=== PATIENT | male | born 1950 | race Caucasian/White ===

== ENCOUNTER 2020-09-25 07:26 | Inpatient (IN) | payer MEDICARE, SELFPAY ==
[2020-09-25] VITALS (67 sets, daily range): BP systolic 70–143; BP diastolic 33–100; PULSE 45–68; RESP 13–42; TEMP 35.8–36.5; O2SAT 88–100; BMI 44.5
--- NOTE | ~2020-09-25 | XR_ITS ---
EXAMINATION: XR chest 1V portable DATE: 09/25/2020 08:45 INDICATION: Dizziness and weakness TECHNIQUE: frontal view of the chest was obtained. COMPARISON: None FINDINGS: Opacities at the medial aspect of the left lower lung zone which could represent atelectasis or pneum onia. No pulmonary edema, pleural effusion or pneumothorax. Borderline heart size accounting for AP t echnique. There are bridging osteophytes at multiple levels in the spine, consistent with diffuse idi opathic skeletal hyperostosis (DISH). IMPRESSION: 1. Opacities at the medial left lower lung zone which could represent atelectasis and/or pneumonia. 2. Borderline heart size. Reviewed, dictated and finalized at location A. HANDLER IMPRESSION: 1. Opacities at the medial left lower lung zone which could represent atelectas is and/or pneumonia. 2. Borderline heart size.
--- NOTE | ~2020-09-25 | XR_ITS ---
XR chest 1V portable DATE: 09/27/2020 05:43 INDICATION: Shock TECHNIQUE: Portable AP chest on September 27, 2020 at 0518 hours COMPARISON: 09/25/2020 portable AP chest at 1254 hours FINDINGS: Right internal jugular central venous catheter tip is situated near the superior cavoatrial junction. There is no pneumothorax. Mild infiltrate or atelectasis in the mid and particularly lower lung zones, increased since . Heart size appears borderline, not optimally evaluated on AP projection because of magnification. Pul monary vascular redistribution may indicate mild pulmonary venous hypertension. There is aortic arch calcification. IMPRESSION: Interval mild infiltrate or atelectasis in the mid and to a greater extent lower lung zon es since 09/25/2020 Reviewed, dictated and finalized at location A. SCIENTIFIC AFFAIRS IMPRESSION: Interval mild infiltrate or atelectasis in the mid and to a greater extent lower lung zones since 09/25/2020
--- NOTE | ~2020-09-25 | US_ITS ---
EXAMINATION: US renal BI DATE: 09/26/2020 09:30 INDICATION: Acute kidney injury. Hydronephrosis. TECHNIQUE: Multiple ultrasound grayscale images of the kidneys were obtained. COMPARISON: None. FINDINGS: Sensitivity is decreased by obesity. The right kidney measures 11.3 x 6.9 x 6.5 cm. The left kidney m easures 12.1 x 7.5 x 8.5 cm. There is no hydronephrosis. The bladder is normal. IMPRESSION: 1. Normal kidneys. No hydronephrosis. Reviewed, dictated and finalized at location A. URETOR SPECIALIST
--- NOTE | ~2020-09-25 | XR_ITS ---
EXAMINATION: XR chest port-a-cath/central DATE: 09/25/2020 12:51 INDICATION: Central venous catheter placement TECHNIQUE: frontal view of the chest was obtained. COMPARISON: Chest radiograph dated 09/25/2020 at 8:43 AM FINDINGS: Right internal jugular central venous catheter with distal tip at the caudal superior vena cava. Agai n seen are mild opacities in the left lower lung zone. Right lung remains clear. No pneumothorax or d efinitive pleural effusion. Borderline heart size. IMPRESSION: 1. Right internal jugular central venous catheter tip in the caudal superior vena cava. 2. Persistent opacities in the left lower lung zone which could represent atelectasis and/or pneumoni a. 3. Borderline heart size. Reviewed, dictated and finalized at location A. DULE CLERK IMPRESSION: 1. Right internal jugular central venous catheter tip in the caudal superior ve na cava. 2. Persistent opacities in the left lower lung zone which could represent atele ctasis and/or pneumonia. 3. Borderline heart size.
--- NOTE | 2020-09-25 07:53 | ECG_ITS ---
Measurements Intervals Waterfall Rate: 57 P: ID: 0 QRS: 12 QRSD: 93 T: 35 QT: 497 QTc: 487 Interpretive Statements ATRIAL FIBRILLATION WITH SLOW VENTRICULAR RESPONSE INCOMPLETE RIGHT BUNDLE BRANCH BLOCK PROLONGED QT INTERVAL BASELINE ARTIFACT- III, AVR, AVL, AVF, V1-V3, V5-V6 ABNORMAL ECG Electronically Signed On 09-25-2020 14:53:26 TEACHER OF FAMILY AND CONSUMER SCIENCE by Stefan Montoya D.O.
[2020-09-25 08:18] LABS: Alveolar/Arterial O2 Gradient 26.2 mmHg; Base Excess ABG -3.2 mEq/l (+/-2.0); Carboxyhemoglobin 0.4 % THb (0-2.0); Fractional Inspired Oxygen 21 %; HCO3 ABG 20.8 mEq/l (22.0-26.0); Methemoglobin ABG 0.2 %THb (0-1.5); Oxygen Content ABG 16.5 %vol (16.0-22.0); Oxygen Saturation ABG 96.3 % (95.0-100.0); Oxyhemoglobin 94.7 % THb (90.0-100.0); PCO2 ABG 34.1 mmHg (35.0-45.0); PO2 ABG 82.7 mmHg (80.0-100.0); PO2 FiO2 Ratio Arterial Blood 3.94 %; Reduced Hemoglobin 4.7 %THb (0-5.0); Total Hemoglobin 12.3 g/dL (12.0-18.0); pH ABG 7.404 (7.350-7.450)
[2020-09-25 08:19] LABS: Device ROOM AIR; Modified Allen's Test Pass; Site Drawn RIGHT RADIAL
[2020-09-25] MEDS: SODIUM CHLORIDE 0.9% IV 1,000 ML 999 ML IV CONT ×2 (08:25→09:03)
[2020-09-25] MEDS: ATROPINE SULFATE 1 MG/10 ML SYRINGE 0.5 MG IV PUSH (08:25)
[2020-09-25] MEDS: GLUCAGON FOR INJ 1 MG VIAL 5 MG IV PUSH (08:42)
[2020-09-25 09:10] LABS: Basophils Percent Auto 0.3 % (0.2-1.2); Eosinophils Absolute Auto 0.2 K/mm3 (0-0.3); Eosinophils Percent Auto 1.5 % (0-4.4); Hematocrit 33.8 % (42.0-52.0); Hemoglobin 10.7 g/dL (14.0-18.0); Immature Granulocyte Absolute 0.06 K/mm3 (0.00-0.031); Immature Granulocyte Percent A 0.6 % (0-0.5); Mean Corpuscular HGB Conc 31.7 g/dl (32-36); Mean Corpuscular Hemoglobin 30.4 pg (26-34); Mean Platelet Volume 10.5 fl (7.4-10.4); Monocytes Absolute Auto 0.5 K/mm3 (0.1-0.6); Monocytes Percent Auto 5.3 % (2.6-8.5); Neutrophils Absolute Auto 7.9 K/mm3 (1.3-6.7); Neutrophils Percent Auto 79.3 % (45.5-73.1); Platelet Count Result 237 k/mm3 (150-375); Red Blood Count 3.52 M/mm3 (4.6-6.20); Red Cell Distribution Width 15.5 % (11.5-14.5)
[2020-09-25 09:21] LABS: Alanine Aminotransferase 32 U/L (4-50); Albumin Level 3.1 g/dL (3.5-5.1); Alkaline Phosphatase 179 U/L (38-126); Anion Gap 6 mmol/L (8-16); Aspartate Amino Transferase 38 U/L (17-59); Bilirubin,Total 0.5 mg/dL (0.2-1.3); Blood Urea Nitrogen 100 mg/dL (9-20); Calcium 7.7 mg/dL (8.4-10.2); Carbon Dioxide 24 mmol/L (22-30); Chloride 105 mmol/L (98-107); Estimated CRCL calculation 25 ml/min; Estimated Glomerular Filt Rate 16; Glucose 222 mg/dL (75-110); INR 4.7; Lactic Acid Reflex 1.4 mmol/L (0.7-2.1); Magnesium 1.9 mg/dL (1.6-2.3); Potassium 4.8 mmol/L (3.4-5.0); Prothrombin Time 44.7 Seconds (11.1-14.7); Sodium 135 mmol/L (137-145)
[2020-09-25 09:22] LABS: Partial Thromboplastin Time 45.6 SECONDS (22.3-36.8)
[2020-09-25 09:32] LABS: Troponin I < 0.012 ng/mL (0.000-0.034)
[2020-09-25 10:04] LABS: Add Urine Microscopic? NO; Appearance Urine Clear (Clear); Bilirubin Urine Negative (Negative); Blood Urine Negative (Negative); Color Urine Yellow (Yellow); Glucose Urine UA Negative (Negative); Ketones Urine Negative (Negative); Leukocyte Esterase Ur Negative LEU/UL (Negative); Nitrate Urine Negative (Negative); Protein Urine Negative (Negative); Specific Grav Ur 1.013 (1.001-1.035); Urobilinogen Urine Negative mg/dL (<2.0)
--- NOTE | 2020-09-25 10:25 | ED.DIZZY ---
HPI - Dizziness General Chief Complaint: Dizziness Stated Complaint: dizziness Time Seen by Provider: 09/25/20 07:51 Source: patient Mode of arrival: EMS Limitations: no limitations History of Present Illness HPI Narrative: Patient is a 70 year old male with multiple medical problems which includes afib, HTN, chronic left foot wound , chronic kidney disease who presents for evaluation of dizziness. He states he took lisinopril 10 mg 2 am this morning for the first time. An hour after taking the medication, he started feeling dizzy. He reports his vision became blurry , and he had pain to the back of his neck and shoulders. He thought it was his blood sugar so he drank some juice and he checked his BS. It was 200 so he realized that was not the cause. He continued to feel lighthead and could walk so he called EMS. EMS found patient to have SBP 60s with bradycardia. He was started on fluids so his blood pressure is higher. He states he feels better. His blurred vision has resolved. He denies chest pain, shortness of breath, abdominal pain, or headache. He reports his neck pain has improved. He denies focal deficits. He took his morning medications this morning which include his metoprolol. He normally gets care at [facility] but his bookmobile clerk is Dr. Bill. Related Data Home Medications Medication Instructions Recorded Confirmed aspirin 81 mg PO DAILY 09/25/20 09/25/20 atorvastatin [Lipitor] 80 mg PO DAILY 09/25/20 09/25/20 bupropion HCl [Wellbutrin XL] 150 mg PO DAILY 09/25/20 09/25/20 cholestyramine (with sugar) 1 ea PO DAILY 09/25/20 09/25/20 [Questran] insulin glargine [Lantus Solostar See Protocol SUBCUT 09/25/20 09/25/20 U-100 Insulin] insulin glargine [Lantus U-100 25 unit SUBCUT 09/25/20 09/25/20 Insulin] insulin lispro [Humalog KwikPen See Protocol SUBCUT 09/25/20 09/25/20 Insulin] lisinopril [Zestril] 10 mg PO HS 09/25/20 09/25/20 metolazone 5 mg PO 3XW 09/25/20 09/25/20 metoprolol tartrate [Lopressor] 50 mg PO Q12H 09/25/20 09/25/20 tamsulosin [Flomax] 0.4 mg PO HS 09/25/20 09/25/20 torsemide 60 mg PO DAILY 09/25/20 09/25/20 tramadol 50 mg PO Q6H PRN 09/25/20 09/25/20 warfarin 10 mg PO QPM 09/25/20 09/25/20 Allergies Allergy/AdvReac Type Severity Reaction Status Date / Time erythromycin base Allergy Hives Verified 09/25/20 07:53 Review of Systems Review of Systems: All systems reviewed & are unremarkable except as noted in HPI and below Constitutional: Constitutional: Denies chills and Denies fever(s) Eyes: Eyes: Reports change in vision ENT: Denies nasal congestion Cardiovascular: Cardiovascular: Denies chest pain Respiratory: Respiratory: Denies cough and Denies dyspnea Gastrointestinal: Gastrointestinal: Denies abdominal pain, Denies nausea and Denies vomiting Neurologic: Reports dizziness, Denies syncope, Denies headache(s) and Reports weakness PMFSH Past Medical History Medical History (Updated 09/25/20 @ 18:22 by Cindy Ledezma NP) BPH (benign prostatic hyperplasia) CHF (congestive heart failure), NYHA class I Chronic a-fib CKD (chronic kidney disease) Depression with anxiety Diabetes History of amputation of left great toe History of cardioversion which she eventually failed. HTN (hypertension) with goal to be determined Hyperlipidemia Surgical History Surgical History (Updated 09/25/20 @ 18:22 by Cindy Ledezma NP) H/O cardiac catheterization H/O heart artery stent LAD Family History Family History (Updated 09/25/20 @ 18:25 by Cindy Ledezma NP) Son Non Hodgkin's lymphoma Acute myocardial infarction Other No known health problems Social History Social History (Updated 09/25/20 @ 18:28 by Cindy Ledezma NP) Social History: the patient is and has a significant other. He has 3 sons. 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 The patient wishes to be a DNR. Patient is a lifelong nonsmoker. He rarely
[2020-09-25] MEDS: SODIUM CHLORIDE 0.9% IV 500 ML 999 ML (11:41)
[2020-09-25] MEDS: DOPamine 400 MG/D5W 250 ML 400 MG/250 ML BAG 14.47 MG IV CONT (11:54)
[2020-09-25 12:32] LABS: Troponin I < 0.012 ng/mL (0.000-0.034)
--- NOTE | 2020-09-25 13:03 | PC.NURSE ---
wound vac removed from lt posterior foot per protocol. saline soaked gauze packed into wound and covered with 4 x 4 gauze and kerlix wrap.
--- NOTE | 2020-09-25 13:58 | ADMGEN ---
This patient, Ruddy Joyner, was admitted to Intensive Care Unit-6. Patient/family oriented to hospital policies and general routines including ID bracelet, bed and alarms, visiting hours, pain management, procedures, bathroom and other care routines, personal items, smoking policy, room service/diet, and visiting hours. Information on how to activate the Rapid Response Team has been discussed. Patient/Family are encouraged to report perceived risks to care and to ask questions if they do not understand what they are told or what they should do.
[2020-09-25] MEDS: DOPamine 400 MG/D5W 250 ML 400 MG/250 ML BAG 17.36 MG IV CONT (14:15)
--- NOTE | 2020-09-25 14:56 | WPDCNINT ---
Assessment and Plan Assessment and plan (1) Shock: Code(s): R57.9 - Shock, unspecified Status: Acute Assessment and Plan: His shock may be due to dehydration in combination with antihypertensives in the setting of acute kidney injury but sepsis should be ruled out especially with the left foot wound he is at risk for spontaneous bacteremia. We need to get his antibiotic allergy list he says he is allergic to vancomycin. In the meantime I will start him on doxycycline 100 mg IV q.12 hours and would like to start clindamycin if he is not allergic to it. If blood cultures are negative for 24-48 hours the clindamycin can be discontinued and he can carry on with his normal doxycycline does that he takes at home. Will give him more IV fluids gently and that with his history of congestive heart failure. And maintain his mean arterial pressure greater than 65. (2) EVON (acute kidney injury): Code(s): N17.9 - Acute kidney failure, unspecified Status: Acute Assessment and Plan: Likely due to shock, hypovolemia, LUCAS/diuretic use, combination of factors. Sepsis also possible. - Keep MAP > 65 - monitor acccurate I/O - avoid nephrotoxic meds and renal dose medications when appropriate. (3) Diabetes: Code(s): E11.9 - Type 2 diabetes mellitus without complications Status: Acute (4) CAD (coronary artery disease): Code(s): I25.10 - Atherosclerotic heart disease of [place] coronary artery without angina pectoris Status: Acute (5) H/O CHF: Code(s): Z86.79 - Personal history of other diseases of the circulatory system Status: Acute Additional Plan Code Status is Full Total Critical Care Time - 34 minutes Due to a high probability of clinically significant, life threatening deterioration, the patient required my highest level of preparedness to intervene emergently and I personally spent this critical care time directly and personally managing the patient. This critical care time included obtaining a history; examining the patient; pulse oximetry; ordering and review of studies; arranging urgent treatment with development of a management plan; evaluation of patient's response to treatment; frequent reassessment; and discussions with other providers. It was exclusive of separately billable procedures and treating other patients and teaching time. Please see Assessment and Plan section and the rest of the note for further information on patient assessment and treatment Poultry Helper Consult Note Consult date: 09/25/20 Time Seen: 14:30 HPI: Ruddy Joyner is a 70 year old male obese male who presents with dizziness and was found to be hypotensive down in the emergency department. He was given a fluid bolus which improved his blood pressure temporarily but later decreased. His heart rate was also in the 50s. He was started on vasopressor support with Levophed. And admitted to the intensive care unit. The patient has a history of diabetes, congestive heart failure, coronary artery disease status post PCI many years ago, obesity, peripheral vascular disease with left foot osteomyelitis currently being treated by Infectious Disease at [facility] with doxycycline. He is allergic to multiple medications he says including vancomycin. I reviewed his laboratory data and imaging and there are significant for no leukocytosis, renal failure with a creatinine of 3.8, normal ABG. We do not have prior labs to compare to we are in the process of trying to obtain his records. I do not have a list of his medications currently but he says he was just started on lisinopril yesterday and he takes a diuretic. And he is also on doxycycline 100 mg b.i.d. for the left foot MRSA infection. He denies any purulent drainage from the wound and denies any foul-smelling odor. The wound is currently bandaged. And he gets wound care with wound VAC at home. Review of Systems Review of Systems: All systems rev
[2020-09-25] MEDS: CENTRAL LINE FLUSH 10 ML IV PUSH ×3 (15:18→21:00)
[2020-09-25] MEDS: LACTATED RINGERS 1,000 ML 500 ML IV CONT (15:18)
[2020-09-25 15:50] LABS: Troponin I 0.017 ng/mL (0.000-0.034)
[2020-09-25] MEDS: LACTATED RINGERS 1,000 ML 75 ML IV CONT (17:29)
--- NOTE | 2020-09-25 18:06 | PM.IMHP ---
H&P: HPI History of Present Illness Date/Time: 09/25/20 18:06 Chief Complaint: Septic shock Narrative: Ruddy Joyner is a 70 year old male who typically receives his care at [facility]. He sees the cardiology group there. He has seen Dr. Butler the past. Patient tells me that he recently had his medications changed he had his lisinopril increased. He is on metoprolol for atrial fibrillation. The patient stated that he was feeling dizzy and weak. He does have home health that comes to his house and they noticed that his blood pressure was low and his heart rate was low. The patient stated he felt like he was having a low sugar reactions so then he drink some orange juice and ate some food. He said his blood sugar was in the 200s after he ate that and he stated he should of checked his sugar before he drink the orange juice. However he did not. The patient felt like he was going to pass out and the home health nurse stated that she wanted him to come to the emergency room. The patient was given IV fluids and initially his blood pressure did increase to 140s. the blood pressure then dropped down to the 80s again. A central line was placed in the emergency room and the patient was started on dopamine. The patient does have chronic renal failure and sees Dr. el . the patient was admitted to ICU and was seen by the proj engineer. It was felt that the patient was hypotensive either due to his blood pressure medicine or sepsis. The patient stated that he has been dealing with a wound on the left foot on and off for 8-9 years. He has had the left toe amputation in the past and has been going to wound care for an ulcerated area on the left foot. The patient stated that he has been on doxycycline for the the left foot wound Due to MRSA. the patient did have a wound VAC on that left foot at 1 time. His multiple allergies but was not able to recall all of them. Therefore the patient was continued on doxycycline. His H&H is 10.7 and 33.8. His BUN is 100 creatinine is 3.8. The patient was not sure where his levels were in the past. Sodium 135. Glucose 222. The patient was given IV fluid an atropine he is also given glucagon to hopefully reverse the beta-emi. patient felt like his vision was fogging any felt dizzy he had pain to his right arm and elbow. He had had a headache Patient was admitted to inpatient services on the date of service of 09/25/2020. Review of Systems Review of Systems: All systems reviewed & are unremarkable except as noted in HPI and below Constitutional: Constitutional: Reports as per HPI and Reports no additional constitutional complaints Eyes: Eyes: Reports as per HPI and Reports no additional eye complaints ENT: Reports system reviewed and no additional complaints, except as documented and Reports Normal hearing present Cardiovascular: Cardiovascular: Reports no additional cardiovascular complaints Respiratory: Respiratory: Reports no additional respiratory complaints and Reports no additional respiratory complaints Gastrointestinal: Gastrointestinal: Reports as per HPI and Reports no additional gastrointestinal complaints Musculoskeletal: Musculoskeletal: Reports no additional musculoskeletal complaints Integumentary/Breasts: Skin/Breast: Reports system reviewed and no additional complaints, except as docu and Reports as per HPI Neurologic: Reports system reviewed and no additional complaints, except as documented, Reports as per HPI and Reports Normal hearing present Psychiatric: Psychiatric: Reports no additional psychiatric complaints and Reports as per HPI Endocrine: Endocrine: Reports no additional endocrine complaints Hematologic/Lymphatic: Hematologic/Lymphatic: Reports no additional hematologic/lymphatic complaints Allergic/Immunologic: Allergic/Immunologic: Reports no additional allergic/immunologic complaints [facility] Past Medical History Medical History (Updated 09/25/20
[2020-09-25] MEDS: INSULIN GLARGINE (*BKC) 100 UNITS/ML 25 UNITS SUB-Q (20:55)
[2020-09-25 21:03] LABS: Glucose Point of Care 234 (65-105)
[2020-09-25] MEDS: DOPamine 400 MG/D5W 250 ML 400 MG/250 ML BAG 28.93 MG IV CONT (21:45)
[2020-09-25] MEDS: ACETAMINOPHEN 325 MG TABLET 650 MG PO (23:51)
[2020-09-26] VITALS (18 sets, daily range): BP systolic 77–126; BP diastolic 43–79; PULSE 62–86; RESP 14–22; TEMP 36.6; O2SAT 89–98
[2020-09-26 04:45] LABS: Basophils Percent Auto 0.2 % (0.2-1.2); Eosinophils Absolute Auto 0.3 K/mm3 (0-0.3); Hematocrit 32.9 % (42.0-52.0); Hemoglobin 10.7 g/dL (14.0-18.0); Immature Granulocyte Absolute 0.06 K/mm3 (0.00-0.031); Immature Granulocyte Percent A 0.6 % (0-0.5); Lymphocytes Absolute Auto 0.94 K/mm3 (0.9-3.2); Mean Corpuscular HGB Conc 32.5 g/dl (32-36); Mean Corpuscular Hemoglobin 30.6 pg (26-34); Mean Platelet Volume 10.2 fl (7.4-10.4); Monocytes Absolute Auto 1.1 K/mm3 (0.1-0.6); Neutrophils Absolute Auto 8.1 K/mm3 (1.3-6.7); Neutrophils Percent Auto 77.2 % (45.5-73.1); Platelet Count Result 229 k/mm3 (150-375); Red Cell Distribution Width 14.8 % (11.5-14.5); White Blood Count 10.5 K/mm3 (4.5-10.0)
[2020-09-26] MEDS: CENTRAL LINE FLUSH 10 ML IV PUSH ×4 (05:15→22:56)
[2020-09-26 05:20] LABS: Lactic Acid Reflex 1.1 mmol/L (0.7-2.1)
[2020-09-26 05:25] LABS: Anion Gap 6 mmol/L (8-16); Blood Urea Nitrogen 104 mg/dL (9-20); CRP 0.9 mg/dL (<1.0); Calcium 7.5 mg/dL (8.4-10.2); Carbon Dioxide 28 mmol/L (22-30); Chloride 103 mmol/L (98-107); Estimated CRCL calculation 25 ml/min; Estimated Glomerular Filt Rate 15; Glucose 185 mg/dL (75-110); Magnesium 1.8 mg/dL (1.6-2.3); Potassium 4.8 mmol/L (3.4-5.0); Sodium 137 mmol/L (137-145)
[2020-09-26] MEDS: DOPamine 400 MG/D5W 250 ML 400 MG/250 ML BAG 40.5 MG IV CONT ×2 (05:45→12:29)
[2020-09-26 05:50] LABS: INR 4.8; Prothrombin Time 45.4 Seconds (11.1-14.7)
[2020-09-26 06:27] LABS: Thyroid Stimulating Hormone Reflex 0.238 uIU/mL (0.465-4.68)
[2020-09-26 06:52] LABS: Free T4 Free Thyroxine Reflex 1.13 ng/dL (0.78-2.19)
[2020-09-26] MEDS: LACTATED RINGERS 1,000 ML 75 ML IV CONT ×2 (07:00→19:50)
[2020-09-26] MEDS: ATORVASTATIN 40 MG TABLET 80 MG PO (07:51)
[2020-09-26] MEDS: buPROPion HCL XL (24 HR) 150 MG TABCR PO (07:52)
[2020-09-26] MEDS: TOLNAFTATE 1% POWDER 45 GM BTL 1 APPLIC TOPICAL ×2 (07:52→21:16)
[2020-09-26 08:02] LABS: Glucose Point of Care 193 (65-105)
[2020-09-26 10:58] LABS: Total Triiodothyronine (T3) 0.82 NG/ML (0.97-1.69)
[2020-09-26 12:13] LABS: Creatinine Urine 71.7 mg/dL
[2020-09-26 12:14] LABS: Potassium Urine Random 32.1 meq/L; Sodium Urine Random 30 meq/L
[2020-09-26] MEDS: CHOLESTYRAMINE (W/ SUGAR) 4 GM POWD.PACK 1 GM PO (12:30)
[2020-09-26] MEDS: SILVERGEL (ELTA) 45 ML 1 APPLIC TOPICAL (12:31)
[2020-09-26] MEDS: INSULIN ASPART (*BKC) 100 UNITS/ML SUB-Q ×2 (12:39→18:48)
[2020-09-26 12:43] LABS: Glucose Point of Care 285 (65-105)
--- NOTE | 2020-09-26 14:02 | PM.CNCAR ---
Assessment and Plan Assessment and plan (1) Bradycardia: Code(s): R00.1 - Bradycardia, unspecified Status: Acute Assessment and Plan: While he is showing signs of improvement patient remains critically ill on pressor support in the intensive care unit. Secondary to beta emi toxicity in the setting of acute on chronic renal failure. Continue to hold beta-emi, wean dopamine infusion as heart rate and BP allow. Suspected metoprolol is metabolized heart rate will improve allowing eventual discontinuation. Hold diuretics and antihypertensives. TSH slightly low at 0.238, not likely to be a significant contributor to clinical status. (2) Shock: Code(s): R57.9 - Shock, unspecified Status: Acute Assessment and Plan: As above, wean dopamine infusion as tolerated. Evaluate for underlying infection and/or secondary contribution. (3) EVON (acute kidney injury): Code(s): N17.9 - Acute kidney failure, unspecified Status: Acute Assessment and Plan: Acute on chronic renal failure secondary to addition of lisinopril which in turn resulted in decreased metabolism metoprolol resulting in bradycardia further exacerbating hypotension. His renal failure is severe and progressive with BUN over 100. Nephrology consulted. Appreciate their involvement. Workup pending. Hopefully, he will be able to avoid dialysis. IV fluid support as appropriate. Monitor electrolytes closely. Anemia chronic, follow H&H. No evidence of active bleed at this time. (4) CAD (coronary artery disease): Code(s): I25.10 - Atherosclerotic heart disease of [place] coronary artery without angina pectoris Status: Chronic Assessment and Plan: Asymptomatic, no anginal symptoms. Serial troponins negative. Patient's presentation does not appear to be an ischemic driven process. Continue statin, aspirin. (5) Chronic a-fib: Code(s): I48.20 - Chronic atrial fibrillation, unspecified Status: Chronic Assessment and Plan: persistent atrial fibrillation with slow ventricular response initially supported with dopamine infusion. Hold AV nik blocking agents. Further determination to be made with regards to management depending upon response to therapy. Systemic anticoagulation for stroke risk reduction. (6) Supratherapeutic INR: Code(s): R79.1 - Abnormal coagulation profile Status: Acute Assessment and Plan: Hold warfarin. INR elevated 4.8. Follow H&H and monitor for bleeding. Goal INR 2-3 on anticoagulation for atrial fibrillation. Daily INR. (7) Pulmonary hypertension: Code(s): I27.20 - Pulmonary hypertension, unspecified Status: Acute Assessment and Plan: Chronic, severe on last echocardiogram August [address] [facility]. RVSP 62-67 mm Hg. (8) Diabetes: Code(s): E11.9 - Type 2 diabetes mellitus without complications Status: Chronic Assessment and Plan: Per primary service. (9) OLGA on CPAP: Code(s): G47.33 - Obstructive sleep apnea (adult) (pediatric); Z99.89 - Dependence on other enabling machines and devices Status: Acute Assessment and Plan: Compliance with CPAP. History of Present Illness History of Present Illness Consult date/time: Date of service: 09/26/20 14:02 Cardiology consultation at the request of Cindy Ledezma of the [facility] for my opinion regarding hypotension and bradycardia. Requesting physician: Cindy Ledezma NP Consult reason: hypotension and Other (bradycardia) Reason For Visit: hypotension Narrative: Patient is a pleasant 70-year-old gentleman with past medical history significant for chronic kidney disease stage III, hypertension, heart failure with preserved ejection fraction, chronic atrial fibrillation, hypertension with diabetes mellitus, pulmonary hypertension, obstructive sleep apnea CPAP, coronary artery disease with prior NSTE
--- NOTE | 2020-09-26 14:10 | WPDINTPN ---
Progress Note: A&P Assessment and Plan (1) Shock: Code(s): R57.9 - Shock, unspecified Status: Acute Assessment and Plan: His shock may be due to dehydration in combination with antihypertensives in the setting of acute kidney injury but sepsis should be ruled out especially with the left foot wound he is at risk for spontaneous bacteremia -I called his infectious disease doctor's office and have his allergy list updated. -will start doxycycline 100 mg IV q.12 hours. He also has a wound on his left lower extremity which could be the source of infection and shock. -blood and urine cultures have been obtained -will obtain wound culture -patient received adequate IV fluids, continue maintenance IV fluids. -on dopamine, will maintain mean arterial pressures > 70 mmHg. -encourage p.o. intake and monitor urine output and renal function (2) EVON (acute kidney injury): Code(s): N17.9 - Acute kidney failure, unspecified Status: Acute Assessment and Plan: Likely due to shock, hypovolemia, LUCAS/diuretic use, combination of factors. Sepsis also possible. - Keep MAP >70 -renal ultrasound did not show any hydronephrosis, normal kidneys -appreciate Nephrology evaluation and recommendation - monitor acccurate I/O - avoid nephrotoxic meds and renal dose medications when appropriate. (3) Diabetes: Code(s): E11.9 - Type 2 diabetes mellitus without complications Status: Chronic Assessment and Plan: Accu-Cheks with sliding scale insulin and Lantus (4) CAD (coronary artery disease): Code(s): I25.10 - Atherosclerotic heart disease of [place] coronary artery without angina pectoris Status: Chronic Assessment and Plan: According to cardiology, preserved EF, moderate pulmonary hypertension (5) Bradycardia: Code(s): R00.1 - Bradycardia, unspecified Status: Acute Assessment and Plan: Continue dopamine could be related to metoprolol use, (6) Chronic a-fib: Code(s): I48.20 - Chronic atrial fibrillation, unspecified Status: Chronic Assessment and Plan: Currently rate controlled, will continue to monitor Additional Plan Discussed with patient updated with his condition and plan of care. Code Status is Full Total Critical Care Time - 33 minutes Due to a high probability of clinically significant, life threatening deterioration, the patient required my highest level of preparedness to intervene emergently and I personally spent this critical care time directly and personally managing the patient. This critical care time included obtaining a history; examining the patient; pulse oximetry; ordering and review of studies; arranging urgent treatment with development of a management plan; evaluation of patient's response to treatment; frequent reassessment; and discussions with other providers. It was exclusive of separately billable procedures and treating other patients and teaching time. Please see Assessment and Plan section and the rest of the note for further information on patient assessment and treatment Subjective Date/time seen: 09/26/20 14:10 Interval history: Reason for consult acute kidney injury, bradycardia, shock 09/26/2021: Patient seen and the ICU, his, oriented x3. Patient is on dopamine at 5 mcg/kg/minute. Also IV fluids at 75 mL/hour. States he feels this chest pain shortness of breath abdominal pain nausea, vomiting, dizziness, lightheadedness. Patient states he does not have a good appetite. Early did urinate about 400 mL earlier on in than 300 mL later. Patient was adequately fluid-resuscitated Review of Systems Review of Systems: All systems reviewed & are unremarkable except as noted in HPI and below Exam Const: General: cooperative, healthy appearing, comfortable, no acute distress, well developed, alert and awake Nutritional Appearance: obese Orientation/consciousness: oriented to person, oriented to place, orien
--- NOTE | 2020-09-26 15:16 | PM.CNNEP ---
Assessment and Plan Assessment and plan (1) CKD (chronic kidney disease): Code(s): N18.9 - Chronic kidney disease, unspecified Status: Chronic Assessment and Plan: Ruddy has an elevated creatinine. Etiology is most likely due to diabetes and high blood pressure. Will try to get records from Dr. haynes (2) EVON (acute kidney injury): Code(s): N17.9 - Acute kidney failure, unspecified Status: Acute Assessment and Plan: His creatinine is high. Dr. Haynes has never suggested dialysis or Education so I suspect that he had stage 3 chronic kidney disease before this and this is acute on chronic kidney disease. It is remotely possible that he had progression of his chronic kidney disease but in this setting I would suggest the former. Most likely this acute kidney injury is due to his hypotension. Perhaps this is due to over diuresis and poor appetite or perhaps he has an infection. He also has BPH and so could have obstruction or urinary retention. He refused a Damico catheter. since his refusal he has made urine twice for a total of 900cc since this morning. So sounds like he does not have absolute retention anyway. I asked the nurse to get a bladder scan after the next time he voids. We will in addition get urine electrolytes and eosinophils and a renal ultrasound. he is getting pressors and fluids now to get the blood pressure up. His blood pressure is doing better at the moment. Hopefully his renal function will improve. (3) Shock: Code(s): R57.9 - Shock, unspecified Status: Acute Assessment and Plan: Blood pressure is very low. He is getting pressors and fluids. Diuretics and antihypertensives are on hold. In case of infection he is on antibiotics. (4) BPH (benign prostatic hyperplasia): Code(s): N40.0 - Benign prostatic hyperplasia without lower urinary tract symptoms Status: Chronic Assessment and Plan: Will get a bladder scan postvoid (5) HTN (hypertension) with goal to be determined: Code(s): I10 - Essential (primary) hypertension Status: Chronic Assessment and Plan: antihypertensives are on hold. (6) Chronic a-fib: Code(s): I48.20 - Chronic atrial fibrillation, unspecified Status: Chronic Assessment and Plan: Heart rate is 66 (7) Pulmonary hypertension: Code(s): I27.20 - Pulmonary hypertension, unspecified Status: Acute Assessment and Plan: supportive care (8) Diabetes: Code(s): E11.9 - Type 2 diabetes mellitus without complications Status: Chronic Assessment and Plan: on Accu-Cheks and sliding-scale insulin (9) Hyperlipidemia: Code(s): E78.5 - Hyperlipidemia, unspecified Status: Chronic Additional Plan he is on atorvastatin History of Present Illness Reason for Consult Consult date: 09/26/20 Chief Complaint Chief complaint: hypotension History of Present Illness Narrative: Ruddy is an unfortunate 70-year-old gentleman who has chronic kidney disease, hyperlipidemia, hypertension, congestive heart failure, chronic atrial fibrillation, diabetes, anxiety, BPH. The patient was in his usual state of health until recently when he started on lisinopril. Apparently then he became a bit confused and weak. He felt like his sugar was low so tried some orange juice but still did not wake up so he checked his blood sugar and was 140. He and his discussed what they should do neck is and so they called his primary care physician who told him to go to the emergency room. In the emergency room his found to have very low blood pressure. He was given fluids and pressors. He was admitted to the ICU. He has chronic swelling and chronic venous stasis dermatitis. He is on diuretics to help treat this: Torsemide 60 mg per day and metolazone 3 times a week. He says that for the last couple of days while feeling poorly, he has not real
[2020-09-26 17:20] LABS: Glucose Point of Care 254 (65-105)
--- NOTE | 2020-09-26 18:20 | PM.IMPN ---
Progress Note: A&P Assessment and Plan (1) Shock: Code(s): R57.9 - Shock, unspecified Status: Acute Assessment and Plan: Etiology unclear but felt related to medications. Patient was on metoprolol and he was given glucagon. The patient is started on a dopamine drip. Lisinopril, metoprolol, flomax, metolazone and torsemide are on hold. Consider also infectious process but seems less likely. CXR showing left lower lobe airspace disease (?PNA). Cultures have been obtained and doxycycline started. The patient is a DNR. His blood pressure did improve. Wean Dopamine as tolerated. (2) Bradycardia: Code(s): R00.1 - Bradycardia, unspecified Status: Acute Assessment and Plan: Patient's heart rate in the 40s on admission. With the dopamine, heart rate has improved into the 60s. TSH slightly low but normal free T4. Wean dopamine as heart rate allows. Continue telemetry. (3) HTN (hypertension) with goal to be determined: Code(s): I10 - Essential (primary) hypertension Status: Chronic Assessment and Plan: As above. Medications on hold. (4) Chronic a-fib: Code(s): I48.20 - Chronic atrial fibrillation, unspecified Status: Chronic Assessment and Plan: Metoprolol held due to bradycardia and hypotension. Heart rate better controlled. He has chronic atrial fibrillation and has had attempted ablation and cardioversion in the past. He is on Coumadin for stroke prophylaxis. INR 4.8 today. Continue to hold Coumadin. Continue daily INR. (5) EVON (acute kidney injury): Code(s): N17.9 - Acute kidney failure, unspecified Status: Acute Assessment and Plan: Creatinine 3.8 on admission and unchanged on repeat. Unclear if this is acute on chronic or chronic. He does have underlying CKD but severity is unknown. Renal ultrasound normal. Continue low volume of IV fluids. Nephrology following. Appreciate their input. (6) CKD (chronic kidney disease): Code(s): N18.9 - Chronic kidney disease, unspecified Status: Chronic Assessment and Plan: Creatinine 3.8 on admission. He does have underlying CKD but severity is unknown. Renal ultrasound normal. Continue low volume of IV fluids. Nephrology following. Appreciate their input. Request old records from [facility] (7) CHF (congestive heart failure), NYHA class I: Code(s): I50.9 - Heart failure, unspecified Status: Chronic Assessment and Plan: Mild evidence of fluid overlaod but overall appears comfortable. Diuretics, metoprolol and lisinopril on hold. Cardiology consulted and are following along. Monitor fluid status. (8) Diabetes: Code(s): E11.9 - Type 2 diabetes mellitus without complications Status: Chronic Assessment and Plan: The patient's blood glucose was reviewed on 09/26 Glucose remains well controlled. Continue AccuCheks covering with sliding scale. Hypoglycemia protocol available as needed. Continue Lantus. Check A1c (9) Depression with anxiety: Code(s): F41.8 - Other specified anxiety disorders Status: Chronic Assessment and Plan: Mood stable. Continue with Wellbutrin. (10) Hyperlipidemia: Code(s): E78.5 - Hyperlipidemia, unspecified Status: Chronic Assessment and Plan: LFTs okay. Continue Lipitor. He does have a history of coronary artery disease. (11) CAD (coronary artery disease): Code(s): I25.10 - Atherosclerotic heart disease of [place] coronary artery without angina pectoris Status: Chronic Assessment and Plan: Stable. Patient with known coronary disease with having 1 stent to the LAD in the past. Medical management as he tolerates. (12) BPH (benign prostatic hyperplasia): Code(s): N40.0 - Benign prostatic hyperplasia without lower urinary tract symptoms Status: Chronic Assessment and Plan: Flomax on hold. C
[2020-09-26 19:07] LABS: Creatinine Urine 76.3 mg/dL; Total Protein Urine Random 13 mg/dL; Ur Ttl Prot Creatinine Ratio 0.17 mg/mg (0-0.20)
[2020-09-26 19:23] LABS: Sodium Urine Random 28 meq/L
[2020-09-26 21:08] LABS: Glucose Point of Care 232 (65-105)
[2020-09-26] MEDS: INSULIN GLARGINE (*BKC) 100 UNITS/ML 25 UNITS SUB-Q (21:16)
[2020-09-27] VITALS (14 sets, daily range): BP systolic 92–144; BP diastolic 40–102; PULSE 66–86; RESP 12–24; TEMP 36.1–36.6; O2SAT 95–100
[2020-09-27 00:22] LABS: Creatine Kinase 44 U/L (55-170)
[2020-09-27] MEDS: CENTRAL LINE FLUSH 10 ML IV PUSH ×4 (05:05→20:56)
[2020-09-27 05:15] LABS: Basophils Percent Auto 0.2 % (0.2-1.2); Eosinophils Absolute Auto 0.3 K/mm3 (0-0.3); Eosinophils Percent Auto 4.2 % (0-4.4); Hematocrit 30.6 % (42.0-52.0); Hemoglobin 9.8 g/dL (14.0-18.0); Immature Granulocyte Absolute 0.03 K/mm3 (0.00-0.031); Immature Granulocyte Percent A 0.4 % (0-0.5); Lymphocytes Absolute Auto 0.87 K/mm3 (0.9-3.2); Lymphocytes Percent Auto 10.8 % (18.3-44.2); Mean Corpuscular Hemoglobin 30.7 pg (26-34); Mean Corpuscular Volume 95.9 fl (80-100); Mean Platelet Volume 9.7 fl (7.4-10.4); Monocytes Absolute Auto 0.8 K/mm3 (0.1-0.6); Monocytes Percent Auto 9.6 % (2.6-8.5); Neutrophils Percent Auto 74.8 % (45.5-73.1); Platelet Count Result 175 k/mm3 (150-375); Red Blood Count 3.19 M/mm3 (4.6-6.20); Red Cell Distribution Width 14.9 % (11.5-14.5)
[2020-09-27 05:34] LABS: Alanine Aminotransferase 22 U/L (4-50); Albumin Level 2.9 g/dL (3.5-5.1); Alkaline Phosphatase 128 U/L (38-126); Anion Gap 7 mmol/L (8-16); Aspartate Amino Transferase 24 U/L (17-59); Bilirubin,Total 0.7 mg/dL (0.2-1.3); Blood Urea Nitrogen 95 mg/dL (9-20); Calcium 7.3 mg/dL (8.4-10.2); Carbon Dioxide 25 mmol/L (22-30); Chloride 105 mmol/L (98-107); Estimated CRCL calculation 28 ml/min; Estimated Glomerular Filt Rate 18; Glucose 120 mg/dL (75-110); Magnesium 1.8 mg/dL (1.6-2.3); Phosphorus 4.8 mg/dL (2.5-4.5); Potassium 4.2 mmol/L (3.4-5.0); Sodium 137 mmol/L (137-145)
[2020-09-27 08:28] LABS: Glucose Point of Care 100 (65-105)
--- NOTE | 2020-09-27 08:52 | PM.PNNEP ---
Progress Note: A&P Assessment and Plan (1) CKD (chronic kidney disease): Code(s): N18.9 - Chronic kidney disease, unspecified Status: Chronic Assessment and Plan: Ruddy has an elevated creatinine. Etiology is most likely due to diabetes and high blood pressure. Will try to get records from Dr. joel to see if we can get a baseline (2) EVON (acute kidney injury): Code(s): N17.9 - Acute kidney failure, unspecified Status: Acute Assessment and Plan: His creatinine is high. His urine electrolytes are not very pre renal Renal ultrasound is normal Urine eosinophils pending Most likely this acute kidney injury is due to his hypotension. Perhaps this is due to over diuresis and poor appetite or perhaps he has an infection. It is unclear how the new administration of lisinopril has played a role. He is making more urine. His creatinine is down. Will continue supportive care for his blood pressure. Holding lisinopril. (3) Shock: Code(s): R57.9 - Shock, unspecified Status: Acute Assessment and Plan: Blood pressure is much better. In case of infection he is on antibiotics. On low-dose pressors (4) BPH (benign prostatic hyperplasia): Code(s): N40.0 - Benign prostatic hyperplasia without lower urinary tract symptoms Status: Chronic (5) HTN (hypertension) with goal to be determined: Code(s): I10 - Essential (primary) hypertension Status: Chronic Assessment and Plan: antihypertensives are on hold. Blood pressure is doing well right now (6) Chronic a-fib: Code(s): I48.20 - Chronic atrial fibrillation, unspecified Status: Chronic Assessment and Plan: Heart rate is 66 (7) Pulmonary hypertension: Code(s): I27.20 - Pulmonary hypertension, unspecified Status: Acute Assessment and Plan: supportive care (8) Diabetes: Code(s): E11.9 - Type 2 diabetes mellitus without complications Status: Chronic Assessment and Plan: on Accu-Cheks and sliding-scale insulin (9) Hyperlipidemia: Code(s): E78.5 - Hyperlipidemia, unspecified Status: Chronic Assessment and Plan: He is on atorvastatin. CPK is okay Subjective Date/time seen: 09/27/20 08:52 Interval history: Patient is alert. Feels better today. He got a good sleep last night. No chest pain or shortness of breath Lying in bed comfortably Review of Systems Cardiovascular: Cardiovascular: Reports no additional cardiovascular complaints Respiratory: Respiratory: Reports no additional respiratory complaints Gastrointestinal: Gastrointestinal: Reports no additional gastrointestinal complaints Genitourinary: Genitourinary: Reports no additional male genitourinary complaints Exam Narrative: Exam Narrative: WDWN in NAD skin chronic venous stasis dermatitis below the knees. head ncat lungs clear cor irreg no rub abd BS+ nontender and soft ext 1 to2+ edema. Objective Data Vital Signs Vital Signs: Vital Signs - 24 hr 09/26/20 10:00 09/26/20 11:56 09/26/20 12:00 Temperature Pulse Rate 76 66 70 Respiratory Rate 18 17 Blood Pressure 121/62 121/47 L 121/47 L Pulse Oximetry 95 94 09/26/20 12:29 09/26/20 14:00 09/26/20 16:00 Temperature Pulse Rate 66 71 67 Respiratory Rate 21 H 16 Blood Pressure 121/47 L 77/61 L 106/48 L Pulse Oximetry 93 96 09/26/20 18:00 09/26/20 20:00 09/26/20 21:59 Temperature 36.6 C Pulse Rate 63 67 67 Respiratory Rate 22 H 18 14 Blood Pressure 99/55 L 110/79 95/72 L Pulse Oximetry 98 96 98 09/27/20 00:00 09/27/20 02:00 09/27/20 04:00 Temperature 36.4 C L 36.6 C Pulse Rate 74 78 66 Respiratory Rate 14 12 14 Blood Pressure 106/44 L 92/45 L 104/56 L Pulse Oximetry 97 95 100 09/27/20 06:00 Temperature Pulse Rate 71 Respiratory Rate 17 Blood Pressure 117/54 L Pulse Oximetry 98 Intake/Output Intake/Output: In
--- NOTE | 2020-09-27 09:17 | PM.IMPN ---
Progress Note: A&P Assessment and Plan (1) Shock: Code(s): R57.9 - Shock, unspecified Status: Acute Assessment and Plan: Etiology unclear but felt related to medications. Patient was on metoprolol on admission and he was given glucagon in ED. The patient was started on a dopamine drip. Lisinopril, metoprolol, flomax, metolazone and torsemide placed on hold. Consider also infectious process but seems less likely. CXR showing left lower lobe airspace disease (?PNA). Cultures have been obtained and doxycycline started. The patient is a DNR. His blood pressure did improve and able to wean off Dopamine. (2) Bradycardia: Code(s): R00.1 - Bradycardia, unspecified Status: Acute Assessment and Plan: Patient's heart rate in the 40s on admission. With the dopamine, heart rate has improved into the 60s. TSH slightly low but normal free T4. Weaned dopamine off and HR remaining stable. Continue to monitor on telemetry. (3) HTN (hypertension) with goal to be determined: Code(s): I10 - Essential (primary) hypertension Status: Chronic Assessment and Plan: As above. Medications on hold. (4) Chronic a-fib: Code(s): I48.20 - Chronic atrial fibrillation, unspecified Status: Chronic Assessment and Plan: Metoprolol held due to bradycardia and hypotension. Heart rate better controlled. He has chronic atrial fibrillation and has had attempted ablation and cardioversion in the past. He is on Coumadin for stroke prophylaxis. INR pending today. Continue to hold Coumadin. Continue daily INR. (5) EVON (acute kidney injury): Code(s): N17.9 - Acute kidney failure, unspecified Status: Acute Assessment and Plan: Creatinine 3.8 on admission and slightly better today at 3.4. Unclear if this is acute on chronic or chronic. He does have underlying CKD but severity is unknown. Renal ultrasound normal. Continue low volume of IV fluids. Nephrology following. Appreciate their input. Old records requested (6) CKD (chronic kidney disease): Code(s): N18.9 - Chronic kidney disease, unspecified Status: Chronic Assessment and Plan: Creatinine 3.8 on admission. He does have underlying CKD but severity is unknown. Renal ultrasound normal. As above. (7) CHF (congestive heart failure), NYHA class I: Code(s): I50.9 - Heart failure, unspecified Status: Chronic Assessment and Plan: Mild evidence of fluid overlaod but overall appears comfortable. Diuretics, metoprolol and lisinopril on hold. Cardiology consulted and are following along. Monitor fluid status. Monitor closely as some home meds resumed. (8) Diabetes: Code(s): E11.9 - Type 2 diabetes mellitus without complications Status: Chronic Assessment and Plan: A1c 9.0. The patient's blood glucose was reviewed on /2 Glucose elevated at times but better controlled this morning. Continue AccuCheks covering with sliding scale. Hypoglycemia protocol available as needed. Continue Lantus. May need meal time insulin (9) Depression with anxiety: Code(s): F41.8 - Other specified anxiety disorders Status: Chronic Assessment and Plan: Mood stable. Continue with Wellbutrin. (10) Hyperlipidemia: Code(s): E78.5 - Hyperlipidemia, unspecified Status: Chronic Assessment and Plan: LFTs okay. Continue Lipitor. He does have a history of coronary artery disease. (11) CAD (coronary artery disease): Code(s): I25.10 - Atherosclerotic heart disease of [place] coronary artery without angina pectoris Status: Chronic Assessment and Plan: Stable. Patient with known coronary disease with having 1 stent to the LAD in the past. Medical management as he tolerates. (12) BPH (benign prostatic hyperplasia): Code(s): N40.0 - Benign prostatic hyperplasia without lower urinary t
[2020-09-27] MEDS: CHOLESTYRAMINE (W/ SUGAR) 4 GM POWD.PACK 1 GM PO (09:43)
[2020-09-27] MEDS: buPROPion HCL XL (24 HR) 150 MG TABCR PO (09:43)
[2020-09-27] MEDS: ATORVASTATIN 40 MG TABLET 80 MG PO (09:43)
[2020-09-27] MEDS: TOLNAFTATE 1% POWDER 45 GM BTL 1 APPLIC TOPICAL ×2 (09:44→20:56)
[2020-09-27] MEDS: SILVERGEL (ELTA) 45 ML 1 APPLIC TOPICAL (09:44)
[2020-09-27] MEDS: EUCERIN CREAM 120 GM JAR 1 APPLIC TOPICAL (09:51)
[2020-09-27 10:19] LABS: INR 3.7; Prothrombin Time 36.9 Seconds (11.1-14.7)
--- NOTE | 2020-09-27 11:55 | WPDINTPN ---
Progress Note: A&P Assessment and Plan (1) Shock: Code(s): R57.9 - Shock, unspecified Status: Acute Assessment and Plan: His shock may be due to dehydration in combination with antihypertensives in the setting of acute kidney injury but sepsis should be ruled out especially with the left foot wound he is at risk for bacteremia -I called his infectious disease doctor's office and have his allergy list updated. -will start doxycycline 100 mg IV q.12 hours. He also has a wound on his left lower extremity which could be the source of infection and shock. -blood cultures negative x2 from 09/26/2020 -urine and wound cultures pending -patient received adequate IV fluids, continue maintenance IV fluids. -off dopamine -encourage p.o. intake and monitor urine output and renal function (2) EVON (acute kidney injury): Code(s): N17.9 - Acute kidney failure, unspecified Status: Acute Assessment and Plan: Likely due to shock, hypovolemia, LUCAS/diuretic use, combination of factors. Sepsis also possible. - Keep MAP >70 -renal ultrasound did not show any hydronephrosis, normal kidneys -appreciate Nephrology evaluation and recommendation - monitor acccurate I/O - avoid nephrotoxic meds and renal dose medications when appropriate. -urine output has improved, creatinine trending down, continue to monitor (3) Diabetes: Code(s): E11.9 - Type 2 diabetes mellitus without complications Status: Chronic Assessment and Plan: Accu-Cheks with sliding scale insulin and Lantus (4) CAD (coronary artery disease): Code(s): I25.10 - Atherosclerotic heart disease of [place] coronary artery without angina pectoris Status: Chronic Assessment and Plan: According to cardiology, preserved EF, moderate pulmonary hypertension (5) Bradycardia: Code(s): R00.1 - Bradycardia, unspecified Status: Acute Assessment and Plan: Continue dopamine could be related to metoprolol use, (6) Chronic a-fib: Code(s): I48.20 - Chronic atrial fibrillation, unspecified Status: Chronic Assessment and Plan: Currently rate controlled, will continue to monitor Additional Plan Discussed with patient updated with his condition and plan of care. Code Status is Full Total Critical Care Time - 32 minutes Due to a high probability of clinically significant, life threatening deterioration, the patient required my highest level of preparedness to intervene emergently and I personally spent this critical care time directly and personally managing the patient. This critical care time included obtaining a history; examining the patient; pulse oximetry; ordering and review of studies; arranging urgent treatment with development of a management plan; evaluation of patient's response to treatment; frequent reassessment; and discussions with other providers. It was exclusive of separately billable procedures and treating other patients and teaching time. Please see Assessment and Plan section and the rest of the note for further information on patient assessment and treatment Subjective Date/time seen: 09/27/20 11:55 Interval history: Reason for consult acute kidney injury, bradycardia, shock 09/27/2020: Patient seen and examined the ICU, is awake, alert, oriented x3, patient is off dopamine. States he feels much better, denies any shortness of breath, chest pain, abdominal pain, nausea, vomiting, dizziness or lightheaded. Patient has been sitting up in chair. Appetite has improved. Urine output has improved, creatinine trending down Review of Systems Review of Systems: All systems reviewed & are unremarkable except as noted in HPI and below Exam Const: General: cooperative, healthy appearing, comfortable, no acute distress, well developed, alert and awake Nutritional Appearance: obese Orientation/consciousness: oriented to person, oriented to place, oriented to time and patient oriente
[2020-09-27 12:23] LABS: Glucose Point of Care 174 (65-105)
--- NOTE | 2020-09-27 12:28 | PC.NURSE ---
This patient, Ruddy Joyner, was received from [facility] on 09/27/20 at 1200. Patient/family oriented to unit policies and routines. Report from LEILANI Hidalgo.
--- NOTE | 2020-09-27 12:33 | PC.NURSE ---
This patient, Ruddy Joyner, was transferred to [ ] on 09/27/20 at 1158. Personal belongings sent with patient. Report given to [Hakan ]. Appropriate documentation sent with patient.
--- NOTE | 2020-09-27 15:47 | PM.PNCARD ---
Progress Note: A&P Assessment and Plan (1) Bradycardia: Code(s): R00.1 - Bradycardia, unspecified Status: Acute Assessment and Plan: Weaned off dopamine, atrial fibrillation stable heart rate and improved, BP improved. Hold off on beta-emi and LUCAS-inhibitor therapy. Monitor renal function and electrolytes. Further determination regarding AV nik blocking agents to be determined based upon renal function, plan of care in this regard and overall heart rate control. Caution to reinitiate too soon to result in symptomatic bradycardia but will need to address if he develops uncontrolled tachycardia. TSH slightly low at 0.238, not likely to be a significant contributor to clinical status. (2) Shock: Code(s): R57.9 - Shock, unspecified Status: Acute Assessment and Plan: Resolved. . (3) EVON (acute kidney injury): Code(s): N17.9 - Acute kidney failure, unspecified Status: Acute Assessment and Plan: Slight improvement but still renal function remains rather poor. Continue close observation. Avoidance of nephrotoxic agents. Acute on chronic renal failure secondary to addition of lisinopril which in turn resulted in decreased metabolism metoprolol resulting in bradycardia further exacerbating hypotension. His renal failure is severe and progressive with BUN over 100. Nephrology consulted. Appreciate their involvement. Workup pending. Anemia chronic, follow H&H. No evidence of active bleed at this time. (4) CAD (coronary artery disease): Code(s): I25.10 - Atherosclerotic heart disease of [place] coronary artery without angina pectoris Status: Chronic Assessment and Plan: Asymptomatic, no anginal symptoms. Serial troponins negative. Patient's presentation does not appear to be an ischemic driven process. Continue statin, aspirin. (5) Chronic a-fib: Code(s): I48.20 - Chronic atrial fibrillation, unspecified Status: Chronic Assessment and Plan: As above. Persistent atrial fibrillation with slow ventricular response initially supported with dopamine infusion. Hold AV nik blocking agents. Systemic anticoagulation for stroke risk reduction. (6) Supratherapeutic INR: Code(s): R79.1 - Abnormal coagulation profile Status: Acute Assessment and Plan: Hold warfarin. INR elevated 3.7, check INR in a.m., consider resume being and warfarin tomorrow depending upon INR. Follow H&H and monitor for bleeding. Goal INR 2-3 on anticoagulation for atrial fibrillation. Daily INR. (7) Pulmonary hypertension: Code(s): I27.20 - Pulmonary hypertension, unspecified Status: Acute Assessment and Plan: Chronic, severe on last echocardiogram August 2020 at [facility]. RVSP 62-67 mm Hg. (8) Diabetes: Code(s): E11.9 - Type 2 diabetes mellitus without complications Status: Chronic Assessment and Plan: Per primary service. (9) OLGA on CPAP: Code(s): G47.33 - Obstructive sleep apnea (adult) (pediatric); Z99.89 - Dependence on other enabling machines and devices Status: Acute Assessment and Plan: Compliance with CPAP. Subjective Date/time seen: Date of service: 09/27/20 15:47 Follow-up for hypertension, shock, bradycardia, atrial fibrillation Feeling much better overall. Dopamine weaned off this morning, heart rate and BP stable. Remains in atrial fibrillation. Denies shortness of breath, chest pain, palpitations. Appetite improving, feels less weak. Review of Systems Review of Systems: All systems reviewed & are unremarkable except as noted in HPI and below Constitutional: Constitutional: Reports as per HPI, Reports no additional constitutional complaints, Reports fatigue, Reports headache(s) and Reports weakness Eyes: Eyes: Reports as per HPI and Reports no additional eye complaints ENT: Reports system reviewed and no additional complaints, except as
[2020-09-27] MEDS: INSULIN ASPART (*BKC) 100 UNITS/ML SUB-Q (17:15)
[2020-09-27 18:43] LABS: Glucose Point of Care 247 (65-105)
[2020-09-27 20:29] LABS: Glucose Point of Care 219 (65-105)
[2020-09-27] MEDS: INSULIN GLARGINE (*BKC) 100 UNITS/ML 25 UNITS SUB-Q (20:56)
[2020-09-28] VITALS (15 sets, daily range): BP systolic 106–145; BP diastolic 46–75; PULSE 75–90; RESP 18–20; TEMP 36.4–37.2; O2SAT 96–99
[2020-09-28 06:09] LABS: Hematocrit 35.1 % (42.0-52.0); Hemoglobin 11.2 g/dL (14.0-18.0); Mean Corpuscular HGB Conc 31.9 g/dl (32-36); Mean Corpuscular Hemoglobin 30.7 pg (26-34); Mean Corpuscular Volume 96.2 fl (80-100); Mean Platelet Volume 9.9 fl (7.4-10.4); Platelet Count Result 228 k/mm3 (150-375); Red Blood Count 3.65 M/mm3 (4.6-6.20); Red Cell Distribution Width 15.4 % (11.5-14.5); White Blood Count 11.7 K/mm3 (4.5-10.0)
[2020-09-28 06:19] LABS: Prothrombin Time 31.6 Seconds (11.1-14.7)
[2020-09-28 06:22] LABS: Albumin Level 3.5 g/dL (3.5-5.1); Anion Gap 10 mmol/L (8-16); Blood Urea Nitrogen 87 mg/dL (9-20); Calcium 7.9 mg/dL (8.4-10.2); Carbon Dioxide 24 mmol/L (22-30); Chloride 108 mmol/L (98-107); Estimated CRCL calculation 33 ml/min; Estimated Glomerular Filt Rate 21; Glucose 120 mg/dL (75-110); Phosphorus 4.1 mg/dL (2.5-4.5); Potassium 4.6 mmol/L (3.4-5.0); Sodium 142 mmol/L (137-145)
[2020-09-28] MEDS: CENTRAL LINE FLUSH 10 ML IV PUSH ×4 (06:26→21:09)
[2020-09-28 07:55] LABS: Glucose Point of Care 135 (65-105)
[2020-09-28] MEDS: ATORVASTATIN 40 MG TABLET 80 MG PO (08:50)
[2020-09-28] MEDS: buPROPion HCL XL (24 HR) 150 MG TABCR PO (08:51)
[2020-09-28] MEDS: CHOLESTYRAMINE LIGHT 4 GM POWD.PACK PO (09:27)
[2020-09-28] MEDS: TOLNAFTATE 1% POWDER 45 GM BTL 1 APPLIC TOPICAL ×2 (09:28→21:09)
[2020-09-28] MEDS: SILVERGEL (ELTA) 45 ML 1 APPLIC TOPICAL (09:28)
[2020-09-28] MEDS: EUCERIN CREAM 120 GM JAR 1 APPLIC TOPICAL (09:28)
--- NOTE | 2020-09-28 10:59 | PM.PNNEP ---
Progress Note: A&P Assessment and Plan (1) CKD (chronic kidney disease): Code(s): N18.9 - Chronic kidney disease, unspecified Status: Chronic Assessment and Plan: Ruddy has an elevated creatinine. Etiology is most likely due to diabetes and high blood pressure. I talked with Dr. Mares and HIS baseline creatinine is between 2 and 2.3 (2) EVON (acute kidney injury): Code(s): N17.9 - Acute kidney failure, unspecified Status: Acute Assessment and Plan: His creatinine is high. His urine electrolytes are not very pre renal Renal ultrasound is normal Urine eosinophils pending Most likely this acute kidney injury is due to his hypotension. Perhaps this is due to over diuresis and poor appetite or perhaps he has an infection. his creatinine seems to be improving. It started at 3.8 and is down to 2.9. Will continue to observe. (3) Shock: Code(s): R57.9 - Shock, unspecified Status: Acute Assessment and Plan: Blood pressure is much better. Off pressors. (4) BPH (benign prostatic hyperplasia): Code(s): N40.0 - Benign prostatic hyperplasia without lower urinary tract symptoms Status: Chronic Assessment and Plan: Urine flow is good he says. (5) HTN (hypertension) with goal to be determined: Code(s): I10 - Essential (primary) hypertension Status: Chronic Assessment and Plan: antihypertensives are on hold. Blood pressure is doing well right now (6) Chronic a-fib: Code(s): I48.20 - Chronic atrial fibrillation, unspecified Status: Chronic Assessment and Plan: Heart rate is 66 (7) Pulmonary hypertension: Code(s): I27.20 - Pulmonary hypertension, unspecified Status: Acute Assessment and Plan: supportive care (8) Diabetes: Code(s): E11.9 - Type 2 diabetes mellitus without complications Status: Chronic Assessment and Plan: on Accu-Cheks and sliding-scale insulin (9) Hyperlipidemia: Code(s): E78.5 - Hyperlipidemia, unspecified Status: Chronic Assessment and Plan: He is on atorvastatin. CPK is okay Additional Plan Subjective Date/time seen: 09/28/20 10:59 Interval history: Patient is alert. Feels better today. lying in the hospital bed. No shortness of breath. Review of Systems Cardiovascular: Cardiovascular: Reports no additional cardiovascular complaints Respiratory: Respiratory: Reports no additional respiratory complaints Gastrointestinal: Gastrointestinal: Reports no additional gastrointestinal complaints Genitourinary: Genitourinary: Reports no additional male genitourinary complaints Exam Narrative: Exam Narrative: WDWN in NAD skin chronic venous stasis dermatitis below the knees. head ncat lungs clear Bilaterally cor irreg no rub abd BS+ nontender and soft ext 1 to2+ edema. Objective Data Vital Signs Vital Signs: Vital Signs - 24 hr 09/27/20 12:00 09/27/20 12:25 09/27/20 14:00 Temperature 36.2 C L Pulse Rate 76 75 75 Respiratory Rate 24 H Blood Pressure 135/53 L Pulse Oximetry 98 09/27/20 16:00 09/27/20 18:00 09/27/20 20:00 Temperature 36.1 C L 36.1 C L Pulse Rate 77 74 86 Respiratory Rate 20 18 Blood Pressure 127/60 144/40 H Pulse Oximetry 98 97 09/27/20 22:00 09/28/20 00:00 09/28/20 02:00 Temperature 37.2 C Pulse Rate 82 80 75 Respiratory Rate 20 Blood Pressure 145/46 H Pulse Oximetry 96 09/28/20 04:00 09/28/20 04:10 09/28/20 06:00 Temperature 37.2 C Pulse Rate 87 81 88 Respiratory Rate 20 Blood Pressure 106/47 L Pulse Oximetry 97 09/28/20 07:57 09/28/20 08:00 09/28/20 10:00 Temperature 36.6 C Pulse Rate 85 83 87 Respiratory Rate 20 Blood Pressure 118/48 L Pulse Oximetry 97 Intake/Output Intake/Output: Intake & Output 09/25/20 09/26/20 09/27/20 09/28/20 23:59 23:59 23:59 23:59 Intake Total 4350 3550 28
--- NOTE | 2020-09-28 11:26 | PM.IMPN ---
Progress Note: A&P Assessment and Plan (1) Shock: Code(s): R57.9 - Shock, unspecified Status: Acute Assessment and Plan: Etiology unclear but felt related to medications. Patient was on metoprolol on admission and he was given glucagon in ED. The patient was started on a dopamine drip. Lisinopril, metoprolol, flomax, metolazone and torsemide placed on hold. Consider also infectious process but seems less likely. CXR showing left lower lobe airspace disease (?PNA). Cultures have been obtained and doxycycline started. BCx NGTD. The patient is a DNR. His blood pressure did improve and able to wean off Dopamine. Follow. (2) Bradycardia: Code(s): R00.1 - Bradycardia, unspecified Status: Acute Assessment and Plan: Patient's heart rate in the 40s on admission. With the dopamine, heart rate improved into the 60s. TSH slightly low but normal free T4. Able to wean dopamine off and HR has remained stable. Continue to monitor on telemetry. (3) UTI (urinary tract infection): Code(s): N39.0 - Urinary tract infection, site not specified Status: Acute Assessment and Plan: UA performed on 09/25 and was completely normal. UCx obtained on 09/26 without UA. Patient is having dysuria. BCx NGTD. Follow up on final UCx result. Contacted the patient's ID specialist to determine what abx are safe to give. Left message and awaiting a call back (4) HTN (hypertension) with goal to be determined: Code(s): I10 - Essential (primary) hypertension Status: Chronic Assessment and Plan: As above. Medications on hold. (5) Chronic a-fib: Code(s): I48.20 - Chronic atrial fibrillation, unspecified Status: Chronic Assessment and Plan: Metoprolol held due to bradycardia and hypotension. Heart rate better controlled. He has chronic atrial fibrillation and has had attempted ablation and cardioversion in the past. He is on Coumadin for stroke prophylaxis. INR 3.0 today. Resume Coumadin. Continue daily INR. Discussed with Cardiology (6) EVON (acute kidney injury): Code(s): N17.9 - Acute kidney failure, unspecified Status: Acute Assessment and Plan: Creatinine 3.8 on admission and better today at 2.9 with baseline at 2.1 consistent with acute on chronic. Renal ultrasound normal. Nephrology following. Appreciate their input. Old records reviewed providing baseline renal function. (7) CKD (chronic kidney disease): Code(s): N18.9 - Chronic kidney disease, unspecified Status: Chronic Assessment and Plan: Creatinine 3.8 on admission. He does have underlying CKD with baseline Cr 2.14. Renal ultrasound normal. As above. (8) CHF (congestive heart failure), NYHA class I: Code(s): I50.9 - Heart failure, unspecified Status: Chronic Assessment and Plan: Mild evidence of fluid overlaod but overall appears comfortable. Diuretics, metoprolol and lisinopril on hold. Cardiology consulted and are following along. Monitor fluid status. Monitor closely as some home meds resumed. (9) Diabetes: Code(s): E11.9 - Type 2 diabetes mellitus without complications Status: Chronic Assessment and Plan: A1c 9.0. The patient's blood glucose was reviewed on 2/3 Glucose elevated at times but better controlled this morning. Continue AccuCheks covering with sliding scale. Hypoglycemia protocol available as needed. Continue Lantus. Monitor for now. (10) Depression with anxiety: Code(s): F41.8 - Other specified anxiety disorders Status: Chronic Assessment and Plan: Mood stable. Continue with Wellbutrin. (11) Hyperlipidemia: Code(s): E78.5 - Hyperlipidemia, unspecified Status: Chronic Assessment and Plan: LFTs okay. Continue Lipitor. He does have a history of coronary artery disease. (12) CAD (coronary artery disease):
[2020-09-28 12:07] LABS: Glucose Point of Care 302 (65-105)
[2020-09-28] MEDS: INSULIN ASPART (*BKC) 100 UNITS/ML SUB-Q ×2 (12:46→16:28)
--- NOTE | 2020-09-28 15:29 | PM.PNCARD ---
Progress Note: A&P Assessment and Plan (1) Bradycardia: Code(s): R00.1 - Bradycardia, unspecified Status: Acute Assessment and Plan: hold off on resuming beta-emi therapy to renal function has improved further and or he becomes tachycardic in AFib. Would start very low-dose metoprolol no more than 12.5 mg based on heart rate, BP and renal function. Will exercise caution in this regard. Weaned off dopamine, atrial fibrillation stable heart rate and improved, BP improved. Hold off on beta-emi and LUCAS-inhibitor therapy. Monitor renal function and electrolytes. Further determination regarding AV nik blocking agents to be determined based upon renal function, plan of care in this regard and overall heart rate control. Caution to reinitiate too soon to result in symptomatic bradycardia but will need to address if he develops uncontrolled tachycardia. TSH slightly low at 0.238, not likely to be a significant contributor to clinical status. (2) Shock: Code(s): R57.9 - Shock, unspecified Status: Acute Assessment and Plan: Resolved. . (3) EVON (acute kidney injury): Code(s): N17.9 - Acute kidney failure, unspecified Status: Acute Assessment and Plan: Slight improvement but still renal function remains rather poor. Continue close observation. Avoidance of nephrotoxic agents. Acute on chronic renal failure secondary to addition of lisinopril which in turn resulted in decreased metabolism metoprolol resulting in bradycardia further exacerbating hypotension. His renal failure is severe and progressive with BUN over 100. Nephrology consulted. Appreciate their involvement. Workup pending. Anemia chronic, follow H&H. No evidence of active bleed at this time. (4) CAD (coronary artery disease): Code(s): I25.10 - Atherosclerotic heart disease of [place] coronary artery without angina pectoris Status: Chronic Assessment and Plan: Asymptomatic, no anginal symptoms. Serial troponins negative. Patient's presentation does not appear to be an ischemic driven process. Continue statin, aspirin. (5) Chronic a-fib: Code(s): I48.20 - Chronic atrial fibrillation, unspecified Status: Chronic Assessment and Plan: As above. Persistent atrial fibrillation with slow ventricular response initially Now resolved. Continue to hold AV nik blocking agents. Systemic anticoagulation for stroke risk reduction. (6) Supratherapeutic INR: Code(s): R79.1 - Abnormal coagulation profile Status: Acute Assessment and Plan: Improved, INR 3.0. Resume warfarin. Follow H&H and monitor for bleeding. Goal INR 2-3 on anticoagulation for atrial fibrillation. Daily INR. (7) Pulmonary hypertension: Code(s): I27.20 - Pulmonary hypertension, unspecified Status: Acute Assessment and Plan: Chronic, severe on last echocardiogram August 2020 at [facility]. RVSP 62-67 mm Hg. (8) Diabetes: Code(s): E11.9 - Type 2 diabetes mellitus without complications Status: Chronic Assessment and Plan: Per primary service. (9) OLGA on CPAP: Code(s): G47.33 - Obstructive sleep apnea (adult) (pediatric); Z99.89 - Dependence on other enabling machines and devices Status: Acute Assessment and Plan: Compliance with CPAP. Subjective Date/time seen: Date of service: 09/28/20 15:29 Follow-up for bradycardia, acute renal failure, hypotension/shock patient doing well, moved out of ICU. BP remains stable, heart rate in AFib controlled in the 80s generally. Patient denies shortness of breath or chest pain, dizziness. Appetite improving. Creatinine down to 2.9 potassium 4.6. INR 3.0 this morning. Review of Systems Review of Systems: All systems reviewed & are unremarkable except as noted in HPI and below Constitutional: Constitutional: Reports as per HPI, Reports no additional con
[2020-09-28] MEDS: WARFARIN (*PBKC) 10 MG TABLET PO (16:29)
[2020-09-28 16:35] LABS: Glucose Point of Care 217 (65-105)
[2020-09-28 20:51] LABS: Glucose Point of Care 344 (65-105)
[2020-09-28] MEDS: INSULIN GLARGINE (*BKC) 100 UNITS/ML 25 UNITS SUB-Q (21:09)
[2020-09-29] VITALS (14 sets, daily range): BP systolic 114–146; BP diastolic 41–81; PULSE 79–101; RESP 12–20; TEMP 36.1–37.1; O2SAT 95–98
[2020-09-29 06:29] LABS: Hematocrit 32.1 % (42.0-52.0); Hemoglobin 10.4 g/dL (14.0-18.0); Mean Corpuscular HGB Conc 32.4 g/dl (32-36); Mean Corpuscular Volume 95.5 fl (80-100); Mean Platelet Volume 10.4 fl (7.4-10.4); Platelet Count Result 215 k/mm3 (150-375); Red Blood Count 3.36 M/mm3 (4.6-6.20); Red Cell Distribution Width 15.5 % (11.5-14.5); White Blood Count 12.1 K/mm3 (4.5-10.0)
[2020-09-29 06:38] LABS: Albumin Level 3.3 g/dL (3.5-5.1); Anion Gap 5 mmol/L (8-16); Blood Urea Nitrogen 77 mg/dL (9-20); Carbon Dioxide 26 mmol/L (22-30); Chloride 109 mmol/L (98-107); Estimated CRCL calculation 40 ml/min; Estimated Glomerular Filt Rate 27; Glucose 153 mg/dL (75-110); Magnesium 2.1 mg/dL (1.6-2.3); Potassium 4.4 mmol/L (3.4-5.0); Sodium 140 mmol/L (137-145)
[2020-09-29 06:44] LABS: INR 2.5; Prothrombin Time 27.6 Seconds (11.1-14.7)
[2020-09-29 08:16] LABS: Glucose Point of Care 155 (65-105)
[2020-09-29] MEDS: CENTRAL LINE FLUSH 10 ML IV PUSH ×3 (08:32→16:21)
[2020-09-29] MEDS: SILVERGEL (ELTA) 45 ML 1 APPLIC TOPICAL (08:36)
[2020-09-29] MEDS: EUCERIN CREAM 120 GM JAR 1 APPLIC TOPICAL (08:36)
[2020-09-29] MEDS: TOLNAFTATE 1% POWDER 45 GM BTL 1 APPLIC TOPICAL ×2 (08:36→20:06)
[2020-09-29] MEDS: buPROPion HCL XL (24 HR) 150 MG TABCR PO (08:36)
[2020-09-29] MEDS: CHOLESTYRAMINE LIGHT 4 GM POWD.PACK PO (08:36)
[2020-09-29] MEDS: ATORVASTATIN 40 MG TABLET 80 MG PO (08:36)
[2020-09-29] MEDS: ASPIRIN 81 MG CHEWABLE TABLET PO (08:36)
--- NOTE | 2020-09-29 10:19 | PM.IMPN ---
Progress Note: A&P Assessment and Plan (1) Shock: Code(s): R57.9 - Shock, unspecified Status: Acute Assessment and Plan: Etiology unclear but felt related to medications. Patient was on metoprolol on admission and he was given glucagon in ED. The patient was started on a dopamine drip. Lisinopril, metoprolol, flomax, metolazone and torsemide placed on hold. Consider also infectious process but seems less likely. CXR showing left lower lobe airspace disease (?PNA). BCx NGTD; UCx showing Proteus. WBC 10-12 range without change; continue doxycycline for now. The patient is a DNR. His blood pressure did improve and able to wean off Dopamine. Follow. (2) Bradycardia: Code(s): R00.1 - Bradycardia, unspecified Status: Acute Assessment and Plan: Patient's heart rate in the 40s on admission. With the dopamine, heart rate improved into the 60s. TSH slightly low but normal free T4. Able to wean dopamine off and HR has remained stable. Continue to monitor on telemetry. (3) UTI (urinary tract infection): Code(s): N39.0 - Urinary tract infection, site not specified Status: Acute Assessment and Plan: UA performed on 09/25 and was completely normal. UCx obtained on 09/26 without UA. Patient is having dysuria but symptoms better. BCx NGTD. UCx growing Proteus. Contacted the patient's ID specialist to determine what abx are safe to give. Left message 09/28/20. Called again today and spoke with RN: she states that Meropenem and Doxy given recently to this patient without problems. She did not see any recent PCN use. He did get Rocephin in 2015 but not sure if there was a reaction to this. Will start Invanz today. Remove central line (4) HTN (hypertension) with goal to be determined: Code(s): I10 - Essential (primary) hypertension Status: Chronic Assessment and Plan: As above. Medications on hold. (5) Chronic a-fib: Code(s): I48.20 - Chronic atrial fibrillation, unspecified Status: Chronic Assessment and Plan: Metoprolol held due to bradycardia and hypotension. Heart rate better controlled. He has chronic atrial fibrillation and has had attempted ablation and cardioversion in the past. He is on Coumadin for stroke prophylaxis. INR 2.5 today. Coumadin resumed 09/28/20. Continue daily INR. (6) EVON (acute kidney injury): Code(s): N17.9 - Acute kidney failure, unspecified Status: Acute Assessment and Plan: Creatinine 3.8 on admission and better today at 2.4 with baseline at 2.1 consistent with acute on chronic. Renal ultrasound normal. Nephrology following. Appreciate their input. Old records reviewed providing baseline renal function. (7) CKD (chronic kidney disease): Code(s): N18.9 - Chronic kidney disease, unspecified Status: Chronic Assessment and Plan: Creatinine 3.8 on admission. He does have underlying CKD with baseline Cr 2.14. Renal ultrasound normal. As above. (8) CHF (congestive heart failure), NYHA class I: Code(s): I50.9 - Heart failure, unspecified Status: Chronic Assessment and Plan: Mild evidence of fluid overlaod but overall appears comfortable. Diuretics, metoprolol and lisinopril on hold. Cardiology consulted and are following along. Monitor fluid status. Monitor closely as some home meds resumed. (9) Diabetes: Code(s): E11.9 - Type 2 diabetes mellitus without complications Status: Chronic Assessment and Plan: A1c 9.0. The patient's blood glucose was reviewed on 09/29 Glucose elevated at times but better controlled this morning. Continue AccuCheks covering with sliding scale. Hypoglycemia protocol available as needed. Continue Lantus. Monitor for now. Add mealtime insulin (10) Depression with anxiety: Code(s): F41.8 - Other specified anxiety disorders Status: Chronic Assessment and Plan:
[2020-09-29] MEDS: ERTAPENEM 1 GM/NS 50 ML 1 GM/50 ML BAG IVPB (11:32)
[2020-09-29] MEDS: INSULIN ASPART (*BKC) 100 UNITS/ML 8 UNITS SUB-Q ×2 (11:33→16:17)
[2020-09-29] MEDS: INSULIN ASPART (*BKC) 100 UNITS/ML SUB-Q ×2 (11:45→16:17)
[2020-09-29 12:38] LABS: Glucose Point of Care 288 (65-105)
--- NOTE | 2020-09-29 12:59 | PM.PNNEP ---
Progress Note: A&P Assessment and Plan (1) CKD (chronic kidney disease): Code(s): N18.9 - Chronic kidney disease, unspecified Status: Chronic Assessment and Plan: Ruddy has an elevated creatinine. Etiology is most likely due to diabetes and high blood pressure. I talked with Dr. Mares and HIS baseline creatinine is between 2 and 2.3 (2) EVON (acute kidney injury): Code(s): N17.9 - Acute kidney failure, unspecified Status: Acute Assessment and Plan: His creatinine is high. His urine electrolytes are not very pre renal Renal ultrasound is normal Urine eosinophils pending Most likely this acute kidney injury is due to his hypotension. Perhaps this is due to over diuresis and poor appetite or perhaps he has an infection. his creatinine seems to be improving. It started at 3.8 and is down to 2.4 , almost baseline. Will continue to observe. (3) Shock: Code(s): R57.9 - Shock, unspecified Status: Acute Assessment and Plan: Blood pressure is much better. Systolic ranging 110-130 Off pressors. (4) BPH (benign prostatic hyperplasia): Code(s): N40.0 - Benign prostatic hyperplasia without lower urinary tract symptoms Status: Chronic Assessment and Plan: Urine flow is good he says. (5) HTN (hypertension) with goal to be determined: Code(s): I10 - Essential (primary) hypertension Status: Chronic Assessment and Plan: antihypertensives are on hold. Blood pressure is doing well right now (6) Chronic a-fib: Code(s): I48.20 - Chronic atrial fibrillation, unspecified Status: Chronic Assessment and Plan: Heart rate is 66 (7) Pulmonary hypertension: Code(s): I27.20 - Pulmonary hypertension, unspecified Status: Acute Assessment and Plan: supportive care (8) Diabetes: Code(s): E11.9 - Type 2 diabetes mellitus without complications Status: Chronic Assessment and Plan: on Accu-Cheks and sliding-scale insulin (9) Hyperlipidemia: Code(s): E78.5 - Hyperlipidemia, unspecified Status: Chronic Assessment and Plan: He is on atorvastatin. CPK is okay Additional Plan Subjective Date/time seen: 09/29/20 12:59 Interval history: Patient is alert. Feels better today. lying in the hospital bed. No shortness of breath. he is upset because his had to put their dog down. Exam Narrative: Exam Narrative: WDWN in NAD skin chronic venous stasis dermatitis below the knees. head ncat lungs clear Bilaterally cor irreg no rub abd BS+ nontender and soft ext 1 to2+ edema. Objective Data Vital Signs Vital Signs: Vital Signs - 24 hr 09/28/20 14:00 09/28/20 16:00 09/28/20 18:00 Temperature 36.4 C L Pulse Rate 83 89 89 Respiratory Rate 20 Blood Pressure 143/75 H Pulse Oximetry 99 09/28/20 20:00 09/28/20 22:00 09/29/20 00:00 Temperature 36.4 C 36.1 C L Pulse Rate 89 80 89 Respiratory Rate 18 18 Blood Pressure 138/52 L 126/66 Pulse Oximetry 96 98 09/29/20 02:00 09/29/20 04:00 09/29/20 06:00 Temperature 36.8 C Pulse Rate 82 87 98 Respiratory Rate 20 Blood Pressure 114/41 L Pulse Oximetry 98 09/29/20 08:00 09/29/20 10:00 09/29/20 12:00 Temperature 36.8 C 36.8 C Pulse Rate 85 94 89 Respiratory Rate 12 16 Blood Pressure 121/81 129/57 L Pulse Oximetry 95 97 Intake/Output Intake/Output: Intake & Output 09/26/20 09/27/20 09/28/20 09/29/20 23:59 23:59 23:59 23:59 Intake Total 3550 2860 1480 590 Output Total 1600 2065 501 600 Balance 1950 795 979 -10 Meds/Results Medications: Active Medications Generic Name Dose Route Start Last Admin Trade Name Freq PRN Reason Stop Dose Admin Acetaminophen 650 mg 09/25/20 23:27 09/25/20 23:51 Acetaminophen 325 Mg Tablet PO 650 mg Q4H PRN Administration Headache Aspirin 81 mg 09/29/20 08:00 09/29/20 08:
--- NOTE | 2020-09-29 14:14 | PM.PNCARD ---
Progress Note: A&P Assessment and Plan (1) Bradycardia: Code(s): R00.1 - Bradycardia, unspecified Status: Acute Assessment and Plan: Resume low-dose metoprolol 12.5 mg twice daily beginning tomorrow provided BP and heart rate remained stable and renal function improves further. Discussed will need to monitor heart rate very closely for tolerance out of concern for symptomatic bradycardia at presentation. Weaned off dopamine, atrial fibrillation stable heart rate and improved, BP improved. Hold off on beta-emi and LUCAS-inhibitor therapy. Monitor renal function and electrolytes. Further determination regarding AV nik blocking agents to be determined based upon renal function, plan of care in this regard and overall heart rate control. Caution to reinitiate too soon to result in symptomatic bradycardia but will need to address if he develops uncontrolled tachycardia. TSH slightly low at 0.238, not likely to be a significant contributor to clinical status. (2) Shock: Code(s): R57.9 - Shock, unspecified Status: Acute Assessment and Plan: Resolved. (3) EVON (acute kidney injury): Code(s): N17.9 - Acute kidney failure, unspecified Status: Acute Assessment and Plan: Slowly improving but renal function remains rather poor. Continue close observation. Avoidance of nephrotoxic agents. Acute on chronic renal failure secondary to addition of lisinopril which in turn resulted in decreased metabolism metoprolol resulting in bradycardia further exacerbating hypotension. Anemia chronic, follow H&H. No evidence of active bleed at this time. (4) CAD (coronary artery disease): Code(s): I25.10 - Atherosclerotic heart disease of [place] coronary artery without angina pectoris Status: Chronic Assessment and Plan: Asymptomatic, no anginal symptoms. Serial troponins negative. Patient's presentation does not appear to be an ischemic driven process. Continue statin, aspirin. (5) Chronic a-fib: Code(s): I48.20 - Chronic atrial fibrillation, unspecified Status: Chronic Assessment and Plan: As above. Persistent atrial fibrillation with slow ventricular response initially Now resolved. Continue to hold AV nik blocking agents. Systemic anticoagulation for stroke risk reduction. (6) Supratherapeutic INR: Code(s): R79.1 - Abnormal coagulation profile Status: Acute Assessment and Plan: INR 3.5. continue warfarin. Follow H&H and monitor for bleeding. Goal INR 2-3 on anticoagulation for atrial fibrillation. Daily INR. (7) Pulmonary hypertension: Code(s): I27.20 - Pulmonary hypertension, unspecified Status: Acute Assessment and Plan: Chronic, severe on last echocardiogram August 2020 at [facility]. RVSP 62-67 mm Hg. (8) Diabetes: Code(s): E11.9 - Type 2 diabetes mellitus without complications Status: Chronic Assessment and Plan: Per primary service. (9) OLGA on CPAP: Code(s): G47.33 - Obstructive sleep apnea (adult) (pediatric); Z99.89 - Dependence on other enabling machines and devices Status: Acute Assessment and Plan: Compliance with CPAP. Subjective Date/time seen: Date of service: 09/29/20 14:14 Follow-up for hypotension/shock, atrial fibrillation with slow ventricular response, acute renal failure Review of Systems Review of Systems: All systems reviewed & are unremarkable except as noted in HPI and below Constitutional: Constitutional: Reports as per HPI, Reports no additional constitutional complaints, Reports fatigue, Reports headache(s) and Reports weakness Eyes: Eyes: Reports as per HPI and Reports no additional eye complaints ENT: Reports system reviewed and no additional complaints, except as documented, Reports as per HPI, Reports headache(s) and Reports neck pain Cardiovascular: Cardiovascular: Reports as per HPI, Rep
[2020-09-29] MEDS: NEOMYCIN/POLYMYXIN/BACITRACIN OINTMENT PACKET 1 PACKET (15:31)
[2020-09-29] MEDS: WARFARIN (*PBKC) 10 MG TABLET PO (16:18)
[2020-09-29 16:33] LABS: Glucose Point of Care 206 (65-105)
[2020-09-29] MEDS: TAMSULOSIN HCL 0.4 MG CAPSULE PO (20:01)
[2020-09-29 21:24] LABS: Glucose Point of Care 269 (65-105)
[2020-09-29] MEDS: INSULIN GLARGINE (*BKC) 100 UNITS/ML 25 UNITS SUB-Q (21:24)
[2020-09-30] VITALS (17 sets, daily range): BP systolic 123–138; BP diastolic 57–68; PULSE 70–97; RESP 12–20; TEMP 36.1–36.6; O2SAT 96–98
[2020-09-30 04:59] LABS: Basophils Percent Auto 0.2 % (0.2-1.2); Eosinophils Absolute Auto 0.3 K/mm3 (0-0.3); Eosinophils Percent Auto 2.3 % (0-4.4); Hematocrit 31.7 % (42.0-52.0); Immature Granulocyte Absolute 0.05 K/mm3 (0.00-0.031); Immature Granulocyte Percent A 0.4 % (0-0.5); Lymphocytes Absolute Auto 1.15 K/mm3 (0.9-3.2); Lymphocytes Percent Auto 9.9 % (18.3-44.2); Mean Corpuscular HGB Conc 31.5 g/dl (32-36); Mean Corpuscular Hemoglobin 29.9 pg (26-34); Mean Corpuscular Volume 94.9 fl (80-100); Monocytes Percent Auto 8.3 % (2.6-8.5); Neutrophils Absolute Auto 9.1 K/mm3 (1.3-6.7); Neutrophils Percent Auto 78.9 % (45.5-73.1); Platelet Count Result 196 k/mm3 (150-375); Red Blood Count 3.34 M/mm3 (4.6-6.20); Red Cell Distribution Width 15.4 % (11.5-14.5); White Blood Count 11.6 K/mm3 (4.5-10.0)
[2020-09-30 05:03] LABS: Prothrombin Time 31.7 Seconds (11.1-14.7)
[2020-09-30 05:25] LABS: Albumin Level 3.1 g/dL (3.5-5.1); Anion Gap 5 mmol/L (8-16); Blood Urea Nitrogen 63 mg/dL (9-20); Calcium 7.7 mg/dL (8.4-10.2); Carbon Dioxide 25 mmol/L (22-30); Chloride 110 mmol/L (98-107); Estimated CRCL calculation 42 ml/min; Estimated Glomerular Filt Rate 28; Glucose 135 mg/dL (75-110); Magnesium 2.1 mg/dL (1.6-2.3); Phosphorus 3.1 mg/dL (2.5-4.5); Potassium 3.9 mmol/L (3.4-5.0); Sodium 140 mmol/L (137-145)
[2020-09-30 08:35] LABS: Glucose Point of Care 158 (65-105)
[2020-09-30] MEDS: ERTAPENEM 1 GM/NS 50 ML 1 GM/50 ML BAG IVPB (09:34)
[2020-09-30] MEDS: METOPROLOL TARTRATE 12.5 MG TABLET PO ×2 (09:47→21:47)
[2020-09-30] MEDS: ATORVASTATIN 40 MG TABLET 80 MG PO (09:48)
[2020-09-30] MEDS: ASPIRIN 81 MG CHEWABLE TABLET PO (09:48)
[2020-09-30] MEDS: INSULIN ASPART (*BKC) 100 UNITS/ML 8 UNITS SUB-Q ×3 (09:49→18:17)
[2020-09-30] MEDS: buPROPion HCL XL (24 HR) 150 MG TABCR PO (09:49)
[2020-09-30] MEDS: CHOLESTYRAMINE LIGHT 4 GM POWD.PACK PO (09:50)
--- NOTE | 2020-09-30 10:08 | PM.PNNEP ---
Progress Note: A&P Assessment and Plan (1) CKD (chronic kidney disease): Code(s): N18.9 - Chronic kidney disease, unspecified Status: Chronic Assessment and Plan: Ruddy has an elevated creatinine. Etiology is most likely due to diabetes and high blood pressure. I talked with Dr. Mares and his baseline creatinine is between 2 and 2.3 He is at his baseline now. (2) EVON (acute kidney injury): Code(s): N17.9 - Acute kidney failure, unspecified Status: Acute Assessment and Plan: Due to hypotension and infection. Resolved (3) Shock: Code(s): R57.9 - Shock, unspecified Status: Acute Assessment and Plan: Resolved (4) BPH (benign prostatic hyperplasia): Code(s): N40.0 - Benign prostatic hyperplasia without lower urinary tract symptoms Status: Chronic Assessment and Plan: Urine flow is good he says. (5) HTN (hypertension) with goal to be determined: Code(s): I10 - Essential (primary) hypertension Status: Chronic Assessment and Plan: antihypertensives are on hold. Blood pressure is well controlled currently. Systolic is 123 (6) Chronic a-fib: Code(s): I48.20 - Chronic atrial fibrillation, unspecified Status: Chronic Assessment and Plan: Heart rate is 66 (7) Pulmonary hypertension: Code(s): I27.20 - Pulmonary hypertension, unspecified Status: Acute Assessment and Plan: supportive care (8) Diabetes: Code(s): E11.9 - Type 2 diabetes mellitus without complications Status: Chronic Assessment and Plan: on Accu-Cheks and sliding-scale insulin (9) Hyperlipidemia: Code(s): E78.5 - Hyperlipidemia, unspecified Status: Chronic Assessment and Plan: He is on atorvastatin. CPK is okay Additional Plan Subjective Date/time seen: 09/30/20 10:08 Interval history: Patient is alert. Feels better today. Sitting up in a chair. He feels better. Exam Narrative: Exam Narrative: WDWN in NAD skin chronic venous stasis dermatitis below the knees. head ncat lungs clear Bilaterally cor irreg no rub abd BS+ nontender and soft ext 2+ edema. Objective Data Vital Signs Vital Signs: Vital Signs - 24 hr 09/29/20 12:00 09/29/20 14:00 09/29/20 16:00 Temperature 36.8 C 36.9 C Pulse Rate 89 89 89 Respiratory Rate 16 12 Blood Pressure 129/57 L 146/63 H Pulse Oximetry 97 98 09/29/20 18:00 09/29/20 19:27 09/29/20 20:00 Temperature 37.1 C Pulse Rate 86 98 96 Respiratory Rate 18 Blood Pressure 128/46 L Pulse Oximetry 98 09/29/20 22:00 09/29/20 23:46 09/30/20 00:00 Temperature 37.1 C Pulse Rate 101 H 79 79 Respiratory Rate 20 Blood Pressure 145/53 H Pulse Oximetry 95 09/30/20 01:59 09/30/20 03:49 09/30/20 04:00 Temperature 36.1 C L Pulse Rate 90 88 97 Respiratory Rate 20 Blood Pressure 138/68 Pulse Oximetry 97 09/30/20 06:00 09/30/20 08:00 09/30/20 09:23 Temperature 36.5 C Pulse Rate 94 92 Respiratory Rate 12 Blood Pressure 123/57 L Pulse Oximetry 97 96 09/30/20 09:47 Temperature Pulse Rate 94 Respiratory Rate Blood Pressure Pulse Oximetry Intake/Output Intake/Output: Intake & Output 09/27/20 09/28/20 09/29/20 09/30/20 23:59 23:59 23:59 23:59 Intake Total 2860 1480 930 400 Output Total 2065 501 1800 500 Balance 795 979 -870 -100 Meds/Results Medications: Active Medications Generic Name Dose Route Start Last Admin Trade Name Freq PRN Reason Stop Dose Admin Acetaminophen 650 mg 09/25/20 23:27 09/25/20 23:51 Acetaminophen 325 Mg Tablet PO 650 mg Q4H PRN Administration Headache Aspirin 81 mg 09/29/20 08:00 09/30/20 09:48 Aspirin 81 Mg Chewable Tablet PO 81 mg DAILY@0800 TERI Administration Atorvastatin Calcium 80 mg 09/26/20 09:00 09/30/20 09:48 Atorvastatin 40 Mg Tablet PO 80 mg DAILY TERI Administration
[2020-09-30 12:36] LABS: Glucose Point of Care 258 (65-105)
--- NOTE | 2020-09-30 12:49 | PM.IMPN ---
Progress Note: A&P Assessment and Plan (1) Shock: Code(s): R57.9 - Shock, unspecified Status: Acute Assessment and Plan: Etiology unclear but felt related to medications. Patient was on metoprolol on admission and he was given glucagon in ED. The patient was started on a dopamine drip. Lisinopril, metoprolol, flomax, metolazone and torsemide placed on hold. Consider also infectious process but seems less likely. CXR showing left lower lobe airspace disease (?PNA). BCx NGTD; UCx showing Proteus. WBC 10-12 range without change; continue doxycycline Day 5 for now. Invanz added. The patient is a DNR. His blood pressure did improve and able to wean off Dopamine. Able to add back Metoprolol and Flomax and he is tolerating these medications. (2) Bradycardia: Code(s): R00.1 - Bradycardia, unspecified Status: Acute Assessment and Plan: Patient's heart rate in the 40s on admission. With the dopamine, heart rate improved into the 60s. TSH slightly low but normal free T4. Able to wean dopamine off and HR has remained stable. Continue to monitor on telemetry. (3) UTI (urinary tract infection): Code(s): N39.0 - Urinary tract infection, site not specified Status: Acute Assessment and Plan: UA performed on 09/25 and was completely normal. UCx obtained on 09/26 without UA. Patient is having dysuria but symptoms resolved now. BCx NGTD. UCx growing Proteus. Contacted the patient's ID specialist to determine what abx are safe to give. Left message 09/28/20. Called again 09/29 and spoke with RN: she states that Meropenem and Doxy given recently to this patient without problems. She did not see any recent PCN use. He did get Rocephin in 2015 but not sure if there was a reaction to this. We started Invanz Day 2. (4) HTN (hypertension) with goal to be determined: Code(s): I10 - Essential (primary) hypertension Status: Chronic Assessment and Plan: As above. Medications on hold. (5) Chronic a-fib: Code(s): I48.20 - Chronic atrial fibrillation, unspecified Status: Chronic Assessment and Plan: Metoprolol held due to bradycardia and hypotension. Heart rate better controlled. He has chronic atrial fibrillation and has had attempted ablation and cardioversion in the past. He is on Coumadin for stroke prophylaxis. Coumadin resumed 09/28/20. INR 3 today. Continue daily INR. (6) EVON (acute kidney injury): Code(s): N17.9 - Acute kidney failure, unspecified Status: Acute Assessment and Plan: Creatinine 3.8 on admission and better today at 2.3 with baseline at 2.1 consistent with acute on chronic. Old records reviewed providing baseline renal function. Renal ultrasound normal. Nephrology following. Appreciate their input. Continue to monitor renal function and electrolytes. (7) CKD (chronic kidney disease): Code(s): N18.9 - Chronic kidney disease, unspecified Status: Chronic Assessment and Plan: Creatinine 3.8 on admission. He does have underlying CKD with baseline Cr 2.14. Renal ultrasound normal. As above. (8) CHF (congestive heart failure), NYHA class I: Code(s): I50.9 - Heart failure, unspecified Status: Chronic Assessment and Plan: Mild evidence of fluid overlaod but overall appears comfortable. Diuretics and lisinopril on hold. Cardiology consulted and are following along. Metoprolol successfully added back. Monitor fluid status. Monitor closely as some home meds resumed. (9) Diabetes: Code(s): E11.9 - Type 2 diabetes mellitus without complications Status: Chronic Assessment and Plan: A1c 9.0. The patient's blood glucose was reviewed on 09/30 Glucose elevated at times but overall better controlled. Continue AccuCheks covering with sliding scale. Hypoglycemia protocol available as needed. Continue Lantus. Monitor for now. Continue meal
[2020-09-30] MEDS: INSULIN ASPART (*BKC) 100 UNITS/ML SUB-Q (13:20)
[2020-09-30] MEDS: TOLNAFTATE 1% POWDER 45 GM BTL 1 APPLIC TOPICAL ×2 (13:21→21:52)
[2020-09-30] MEDS: EUCERIN CREAM 120 GM JAR 1 APPLIC TOPICAL (13:21)
[2020-09-30] MEDS: SILVERGEL (ELTA) 45 ML 1 APPLIC TOPICAL (13:21)
[2020-09-30] MEDS: CENTRAL LINE FLUSH 10 ML IV PUSH ×2 (13:22→18:18)
--- NOTE | 2020-09-30 14:50 | PM.PNCARD ---
Progress Note: A&P Assessment and Plan (1) Bradycardia: Code(s): R00.1 - Bradycardia, unspecified Status: Acute Assessment and Plan: Continue Metoprolol 12.5 mg twice daily. Follow up as outpatient in one month. Continue warfarin goal INR 2-3 for anticoagulation, INR 3.0 today. Will see pt as needed. Please call with any questions or concerns. . . (2) Shock: Code(s): R57.9 - Shock, unspecified Status: Acute Assessment and Plan: Resolved. (3) EVON (acute kidney injury): Code(s): N17.9 - Acute kidney failure, unspecified Status: Acute Assessment and Plan: Slowly improving but renal function remains rather poor. Continue close observation. Avoidance of nephrotoxic agents. Acute on chronic renal failure secondary to addition of lisinopril which in turn resulted in decreased metabolism metoprolol resulting in bradycardia further exacerbating hypotension. Anemia chronic, follow H&H. No evidence of active bleed at this time. (4) CAD (coronary artery disease): Code(s): I25.10 - Atherosclerotic heart disease of [place] coronary artery without angina pectoris Status: Chronic Assessment and Plan: Asymptomatic, no anginal symptoms. Serial troponins negative. Patient's presentation does not appear to be an ischemic driven process. Continue statin, aspirin. (5) Chronic a-fib: Code(s): I48.20 - Chronic atrial fibrillation, unspecified Status: Chronic Assessment and Plan: As above. Persistent atrial fibrillation with slow ventricular response initially now resolved. (6) Supratherapeutic INR: Code(s): R79.1 - Abnormal coagulation profile Status: Acute Assessment and Plan: INR 3.5. continue warfarin. Follow H&H and monitor for bleeding. Goal INR 2-3 on anticoagulation for atrial fibrillation. Daily INR. (7) Pulmonary hypertension: Code(s): I27.20 - Pulmonary hypertension, unspecified Status: Acute Assessment and Plan: Chronic, severe on last echocardiogram August 2020 at [facility]. RVSP 62-67 mm Hg. (8) Diabetes: Code(s): E11.9 - Type 2 diabetes mellitus without complications Status: Chronic Assessment and Plan: Per primary service. (9) OLGA on CPAP: Code(s): G47.33 - Obstructive sleep apnea (adult) (pediatric); Z99.89 - Dependence on other enabling machines and devices Status: Acute Assessment and Plan: Compliance with CPAP. Subjective Date/time seen: Date of Service: 09/30/20 14:50 Follow up for atrial fibrillation, bradycardia and hypotension with acute renal failure. No new complaints. no CP or palps. He states he feels great. no dizziness, SOB. no new issues overnight. HR 70's-90's A.Fib. Review of Systems Review of Systems: All systems reviewed & are unremarkable except as noted in HPI and below Constitutional: Constitutional: Reports as per HPI, Reports no additional constitutional complaints, Reports fatigue, Reports headache(s) and Reports weakness Eyes: Eyes: Reports as per HPI and Reports no additional eye complaints ENT: Reports system reviewed and no additional complaints, except as documented, Reports as per HPI, Reports headache(s) and Reports neck pain Cardiovascular: Cardiovascular: Reports as per HPI, Reports no additional cardiovascular complaints, Denies chest pain, Denies diaphoresis, Reports leg edema, Reports lightheadedness, Denies palpitations, Denies dyspnea and Denies dyspnea on exertion Respiratory: Respiratory: Reports as per HPI, Reports no additional respiratory complaints, Denies hemoptysis, Denies dyspnea and Denies dyspnea on exertion Gastrointestinal: Gastrointestinal: Reports as per HPI, Reports no additional gastrointestinal complaints, Denies abdominal pain, Denies melena and Denies hematochezia Genitourinary: Genitourinary: Reports no additional male genitourinary complaints and Report
[2020-09-30 17:02] LABS: Glucose Point of Care 147 (65-105)
[2020-09-30] MEDS: WARFARIN (*PBKC) 10 MG TABLET PO (18:16)
--- NOTE | 2020-09-30 19:15 | PC.NURSE ---
This patient, Ruddy Joyner, was received from IMU on 09/30/20 at 1915. Patient/family oriented to unit policies and routines
[2020-09-30] MEDS: TAMSULOSIN HCL 0.4 MG CAPSULE PO (21:46)
[2020-09-30] MEDS: INSULIN GLARGINE (*BKC) 100 UNITS/ML 25 UNITS SUB-Q (21:59)
[2020-09-30 22:07] LABS: Glucose Point of Care 155 (65-105)
[2020-10-01] VITALS (8 sets, daily range): BP systolic 114–139; BP diastolic 61–66; PULSE 68–89; RESP 18–20; TEMP 36.5–36.8; O2SAT 96–99
[2020-10-01 08:39] LABS: Glucose Point of Care 107 (65-105)
[2020-10-01] MEDS: INSULIN ASPART (*BKC) 100 UNITS/ML 8 UNITS SUB-Q ×2 (08:53→12:22)
[2020-10-01] MEDS: ASPIRIN 81 MG CHEWABLE TABLET PO (08:54)
[2020-10-01] MEDS: CHOLESTYRAMINE LIGHT 4 GM POWD.PACK PO (08:54)
[2020-10-01] MEDS: METOPROLOL TARTRATE 12.5 MG TABLET PO (08:54)
[2020-10-01] MEDS: buPROPion HCL XL (24 HR) 150 MG TABCR PO (08:54)
[2020-10-01] MEDS: ATORVASTATIN 40 MG TABLET 80 MG PO (08:54)
[2020-10-01] MEDS: ERTAPENEM 1 GM/NS 50 ML 1 GM/50 ML BAG IVPB (08:55)
[2020-10-01] MEDS: TOLNAFTATE 1% POWDER 45 GM BTL 1 APPLIC TOPICAL (08:57)
[2020-10-01] MEDS: EUCERIN CREAM 120 GM JAR 1 APPLIC TOPICAL (08:57)
[2020-10-01] MEDS: SILVERGEL (ELTA) 45 ML 1 APPLIC TOPICAL (08:57)
[2020-10-01 09:45] LABS: Hematocrit 36.6 % (42.0-52.0); Mean Corpuscular HGB Conc 30.1 g/dl (32-36); Mean Corpuscular Hemoglobin 29.8 pg (26-34); Mean Corpuscular Volume 99.2 fl (80-100); Mean Platelet Volume 10.4 fl (7.4-10.4); Platelet Count Result 215 k/mm3 (150-375); Red Blood Count 3.69 M/mm3 (4.6-6.20); Red Cell Distribution Width 14.9 % (11.5-14.5); White Blood Count 9.6 K/mm3 (4.5-10.0)
[2020-10-01 09:53] LABS: INR 3.1; Prothrombin Time 32.5 Seconds (11.1-14.7)
[2020-10-01 09:56] LABS: Albumin Level 3.5 g/dL (3.5-5.1); Anion Gap 7 mmol/L (8-16); Blood Urea Nitrogen 65 mg/dL (9-20); Calcium 8.2 mg/dL (8.4-10.2); Carbon Dioxide 24 mmol/L (22-30); Chloride 108 mmol/L (98-107); Estimated CRCL calculation 45 ml/min; Estimated Glomerular Filt Rate 31; Glucose 114 mg/dL (75-110); Magnesium 2.2 mg/dL (1.6-2.3); Phosphorus 3.8 mg/dL (2.5-4.5); Potassium 4.5 mmol/L (3.4-5.0); Sodium 139 mmol/L (137-145)
--- NOTE | 2020-10-01 10:30 | PM.PNNEP ---
Progress Note: A&P Assessment and Plan (1) CKD (chronic kidney disease): Code(s): N18.9 - Chronic kidney disease, unspecified Status: Chronic Assessment and Plan: Ruddy has an elevated creatinine. Etiology is most likely due to diabetes and high blood pressure. I talked with Dr. Mares and his baseline creatinine is between 2 and 2.3 He is at his baseline now. Will restart torsemide 60 mg a day. Will stay away from lisinopril (2) EVON (acute kidney injury): Code(s): N17.9 - Acute kidney failure, unspecified Status: Acute Assessment and Plan: Resolved (3) Shock: Code(s): R57.9 - Shock, unspecified Status: Acute Assessment and Plan: Resolved (4) BPH (benign prostatic hyperplasia): Code(s): N40.0 - Benign prostatic hyperplasia without lower urinary tract symptoms Status: Chronic Assessment and Plan: Urine flow is good he says. (5) HTN (hypertension) with goal to be determined: Code(s): I10 - Essential (primary) hypertension Status: Chronic Assessment and Plan: antihypertensives are on hold. Blood pressure is well controlled currently. Systolic is 123 (6) Chronic a-fib: Code(s): I48.20 - Chronic atrial fibrillation, unspecified Status: Chronic Assessment and Plan: Heart rate is 66 (7) Pulmonary hypertension: Code(s): I27.20 - Pulmonary hypertension, unspecified Status: Acute Assessment and Plan: supportive care (8) Diabetes: Code(s): E11.9 - Type 2 diabetes mellitus without complications Status: Chronic Assessment and Plan: on Accu-Cheks and sliding-scale insulin (9) Hyperlipidemia: Code(s): E78.5 - Hyperlipidemia, unspecified Status: Chronic Assessment and Plan: He is on atorvastatin. CPK is okay Additional Plan Subjective Date/time seen: 10/01/20 10:30 Interval history: Patient is alert. Feels better today. Sitting up at the side of the bed. He is in good spirits Review of Systems Cardiovascular: Cardiovascular: Reports no additional cardiovascular complaints Respiratory: Respiratory: Reports no additional respiratory complaints Gastrointestinal: Gastrointestinal: Reports no additional gastrointestinal complaints Genitourinary: Genitourinary: Reports no additional male genitourinary complaints Exam Narrative: Exam Narrative: WDWN in NAD skin chronic venous stasis dermatitis below the knees. head ncat lungs clear to auscultation cor irreg no rub abd BS+ nontender and soft ext 2+ edema. Objective Data Vital Signs Vital Signs: Vital Signs - 24 hr 09/30/20 12:00 09/30/20 14:00 09/30/20 15:11 Temperature 36.4 C Pulse Rate 70 77 88 Respiratory Rate 12 Blood Pressure 131/57 L Pulse Oximetry 96 09/30/20 16:00 09/30/20 18:00 09/30/20 19:15 Temperature 36.6 C 36.6 C Pulse Rate 79 76 74 Respiratory Rate 12 20 Blood Pressure 127/62 128/67 Pulse Oximetry 97 98 09/30/20 20:00 09/30/20 21:47 10/01/20 00:00 Temperature 36.8 C Pulse Rate 83 80 79 Respiratory Rate 20 Blood Pressure 139/66 Pulse Oximetry 98 10/01/20 04:00 10/01/20 06:00 10/01/20 08:54 Temperature 36.7 C Pulse Rate 82 89 89 Respiratory Rate 20 Blood Pressure 114/66 Pulse Oximetry 99 Intake/Output Intake/Output: Intake & Output 09/28/20 09/29/20 09/30/20 10/01/20 23:59 23:59 23:59 23:59 Intake Total 4185 943 3100 660 Output Total 501 1800 1100 400 Balance 979 -870 940 260 Meds/Results Medications: Active Medications Generic Name Dose Route Start Last Admin Trade Name Freq PRN Reason Stop Dose Admin Acetaminophen 650 mg 09/25/20 23:27 09/25/20 23:51 Acetaminophen 325 Mg Tablet PO 650 mg Q4H PRN Administration Headache Aspirin 81 mg 09/29/20 08:00 10/01/20 08:54 Aspirin 81 Mg Chewable Tablet PO 81 mg DAILY@0800 [facility] Administration Panfilo
[2020-10-01 12:15] LABS: Glucose Point of Care 200 (65-105)
[2020-10-01] MEDS: TORSEMIDE 20 MG TABLET 40 MG PO (12:21)
--- NOTE | 2020-10-01 12:42 | PM.DS ---
DS: Admitting Diagnosis Admitting Diagnosis Admitting Diagnosis: Dizzy and weak DS: Discharge Diagnosis Discharge Diagnosis (1) Shock: Code(s): R57.9 - Shock, unspecified Status: Acute Assessment and Plan: Etiology of shock unclear but felt related to medications. Patient was on metoprolol on admission and he was given glucagon in ED. The patient was started on a dopamine drip. Lisinopril, metoprolol, flomax, metolazone and torsemide placed on hold. Consider also infectious process but seems less likely. CXR showing left lower lobe airspace disease (?PNA). BCx NGTD; UCx growing Proteus. WBC 10-12 range before normalizing. Treated with doxycycline and Invanz added for UTI (he has many allergies). The patient is a DNR. His blood pressure did improve and able to wean off Dopamine. Able to add back Metoprolol, Flomax and Torsemide; he is tolerating these medications. (2) Bradycardia: Code(s): R00.1 - Bradycardia, unspecified Status: Acute Assessment and Plan: Patient's heart rate in the 40s on admission. With the dopamine, heart rate improved into the 60s. TSH slightly low but normal free T4. Able to wean dopamine off and HR has remained stable. Tolerated adding back metoprolol. (3) UTI (urinary tract infection): Code(s): N39.0 - Urinary tract infection, site not specified Status: Acute Assessment and Plan: UA performed on 09/25 and was completely normal (cath specimen in ED but did NOT have Damico during his hospital course). UCx obtained on 09/26 without UA. Patient is having dysuria but symptoms resolved now. BCx NGTD. UCx growing Proteus. Contacted the patient's ID specialist to determine what abx are safe to give. Left message 09/28/20. Called again 09/29 and spoke with RN: she states that Meropenem and Doxy given recently to this patient without problems. She did not see any recent PCN use. He did get Rocephin in 2014 but not sure if there was a reaction to this. He completed 3 days of Invanz; given the completely normal UA and the possibility this was related to the cath specimen, it was felt 3 days of appropriate IV abx was sufficinet. UTI symptoms have resolved. (4) HTN (hypertension) with goal to be determined: Code(s): I10 - Essential (primary) hypertension Status: Chronic Assessment and Plan: Blood pressure much better. Tolerating adding back some of his medications. (5) Chronic a-fib: Code(s): I48.20 - Chronic atrial fibrillation, unspecified Status: Chronic Assessment and Plan: Metoprolol held due to bradycardia and hypotension. Heart rate better controlled. He has chronic atrial fibrillation and has had attempted ablation and cardioversion in the past. He is on Coumadin for stroke prophylaxis. Coumadin resumed 09/28/20. INR therapeutic during his hospital course (6) EVON (acute kidney injury): Code(s): N17.9 - Acute kidney failure, unspecified Status: Acute Assessment and Plan: Creatinine 3.8 on admission and better today at 2.1 with baseline at 2.1 consistent with acute on chronic. Old records reviewed providing baseline renal function. Renal ultrasound normal. Nephrology followed along. Torsemide resumed. Repeat renal function and electrolytes as an outpatient. (7) CKD (chronic kidney disease): Code(s): N18.9 - Chronic kidney disease, unspecified Status: Chronic Assessment and Plan: Creatinine 3.8 on admission. He does have underlying CKD with baseline Cr 2.14. Renal ultrasound normal. As above. (8) CHF (congestive heart failure), NYHA class I: Code(s): I50.9 - Heart failure, unspecified Status: Chronic Assessment and Plan: Mild evidence of fluid overlaod but overall appears comfortable. Diuretics and lisinopril were held. Cardiology consulted and are following along. Metoprolol successfully added back. Diuretics resum
[2020-10-01 15:15] LABS: Chloride Rand Ur 26 mmol/L (32-290); Chloride/Creatinine Rand Ur 37 (23-275); Creatinine Random Urine 70 mg/dL (20-320)
--- NOTE | 2020-10-01 16:50 | PC.NURSE ---
PT/INR reported to Dr. Miller, confirmed dose of coumadin to go home is 10MG/day
== END 2020-10-01 17:45 | disposition home health service (06) | DRG 915 ==
LOC: ANHED 08:35 → ANHICU 13:50 → ANHIMU 09-27 15:30 → ANH3MEDSUR 10-01 02:00 → ANHICU 10-04 12:09 → ANHIMU 10-04 12:09
PROVIDERS: Internal Medicine; Internal Medicine Nephrology; Nurse Practitioner; Admitting Provider Family Medicine; Emergency Provider General Practice; PCP Internal Medicine; Visit Provider Internal Medicine
DX: T88.6XXA Anaphylactic reaction due to adverse effect of correct drug or medicament properly administered, initial encounter (principal); R57.1 Hypovolemic shock; N39.0 Urinary tract infection, site not specified; N17.9 Acute kidney failure, unspecified; I48.20 Chronic atrial fibrillation, unspecified; I13.0 Hypertensive heart and chronic kidney disease with heart failure and stage 1 through stage 4 chronic kidney disease, or unspecified chronic kidney disease; R00.1 Bradycardia, unspecified; T44.7X5A Adverse effect of beta-adrenoreceptor antagonists, initial encounter; I50.9 Heart failure, unspecified; B96.4 Proteus (mirabilis) (morganii) as the cause of diseases classified elsewhere; N18.30 Chronic kidney disease, stage 3 unspecified; N40.0 Benign prostatic hyperplasia without lower urinary tract symptoms; G47.33 Obstructive sleep apnea (adult) (pediatric); E11.22 Type 2 diabetes mellitus with diabetic chronic kidney disease; I27.20 Pulmonary hypertension, unspecified; E78.5 Hyperlipidemia, unspecified; R79.1 Abnormal coagulation profile; L97.529 Non-pressure chronic ulcer of other part of left foot with unspecified severity; I25.10 Atherosclerotic heart disease of native coronary artery without angina pectoris; F41.8 Other specified anxiety disorders; Z89.412 Acquired absence of left great toe; Z95.5 Presence of coronary angioplasty implant and graft; Z66 Do not resuscitate; Z79.01 Long term (current) use of anticoagulants
CPT/HCPCS: 36415; 36556; 36600; 51701; 71045; 76775; 80048; 80053; 80069; 81003; 82375; 82436; 82533; 82550; 82570; 82728; 82805; 82948; 83036; 83050; 83605; 83735; 84100; 84133; 84156; 84300; 84439; 84443; 84480; 84484; 85025; 85027; 85610; 85730; 85999; 86140; 87040; 87077; 87086; 87088; 87186; 93005; 96361; 96374; 96375; 97110; 97161; 97165; 97530; 97535; 99285; A9270; C1751; J0461; J1265; J1335; J1610; J1815; J7030; J7040; J7120